=== PATIENT | female | born 1965 | race Caucasian/White ===

== ENCOUNTER 2017-07-15 23:24 | Emergency (ER) | payer OTHER ==
[~2017-07-15] VITALS: Ht 170.2 cm; Wt 86.2 kg
[~2017-07-15 23:24] MED LIST: HYDR1TAB PO; OMEP20CA12 PO
--- OUTSIDE RECORDS SUMMARY | 2017-07-15 23:33 | XMS REPORT | Continuity of Care Document ---
Author Author [facility] Organization [facility] Address Unknown Phone Unavailable Allergies Active Description Code Type Severity Reaction Onset Reported/Identified Relationship to Patient Clinical Status Yes Penicillins [id number] Drug Allergy Unknown N/A 01/27/2016 Medications There is no data. Problems Date Dx Coded Attending Type Code Diagnosis Diagnosed By 05/04/2012 Ot 788.0 RENAL COLIC 05/04/2012 Ot 789.09 ABDOMINAL PAIN, OTHER SPECIFIED SITE 09/25/2012 Ot 723.4 BRACHIAL NEURITIS NOS 09/25/2012 Ot V57.1 PHYSICAL THERAPY NEC 07/01/2013 RENA BLANDON DO Ot V57.1 PHYSICAL THERAPY NEC 07/01/2013 RENA BLANDON DO Ot V58.49 OTHER SPECIFIED AFTERCARE FOLLOWING SURG 09/03/2014 Ot 530.81 09/03/2014 Ot 750.3 09/03/2014 Ot 722.91 09/03/2014 Ot 723.1 09/03/2014 Ot 625.9 09/03/2014 Ot 788.1 09/04/2014 Ot 530.81 09/04/2014 Ot 750.3 09/04/2014 Ot 722.91 09/04/2014 Ot 723.1 09/04/2014 Ot 625.9 09/04/2014 Ot 788.1 11/05/2014 Ot 530.81 11/05/2014 Ot 750.3 11/05/2014 Ot 722.91 11/05/2014 Ot 723.1 11/05/2014 Ot 625.9 11/05/2014 Ot 788.1 11/11/2014 Ot 530.81 11/11/2014 Ot 750.3 11/11/2014 Ot 722.91 11/11/2014 Ot 723.1 11/11/2014 Ot 625.9 11/11/2014 Ot 788.1 11/18/2014 Ot 530.81 11/18/2014 Ot 750.3 11/18/2014 Ot 722.91 11/18/2014 Ot 723.1 11/18/2014 Ot 625.9 11/18/2014 Ot 788.1 11/18/2014 PAULNDER DO, CALLY S Ot 719.41 11/18/2014 PAULNDER DO, CALLY S Ot 723.1 11/18/2014 PAULNDER DO, CALLY S Ot V57.1 11/19/2014 PAULNDER DO, CALLY S Ot 719.41 11/19/2014 PAULNDER DO, CALLY S Ot 723.1 11/19/2014 PAULND DO, CALLY S Ot V57.1 11/28/2014 PAULND DO, CALLY S Ot 719.41 11/28/2014 PAULND DO, CALLY S Ot 723.1 11/28/2014 PAULND DO, CALLY S Ot V57.1 02/16/2015 PAULND DO, CALLY S Ot 719.41 JOINT PAIN-SHLDER 02/16/2015 ADRIANA , CALLY S Ot 723.1 CERVICALGIA 02/16/[address] 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 11/23/2015 Ot 530.81 ESOPHAGEAL REFLUX 11/23/2015 Ot 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 11/23/2015 Ot 722.91 DISC DIS NEC /NOS-CERV 11/23/2015 Ot 723.1 CERVICALGIA 11/23/2015 Ot 625.9 FEM GENITAL SYMPTOMS NOS 11/23/2015 Ot 788.1 DYSURIA 11/23/2015 STEPHANY HARMONP Ot 784.2 SWELLING IN HEAD NECK 11/23/2015 SHENA SHINE DOLINE S Ot 719.49 JOINT PAIN-MULT JTS 11/23/2015 MAXIM SHINE DOQUELINE S Ot 780.79 OTH MALAISE FATIGUE 11/27/2015 INDRA BOLIVAR, DONOVAN Ot Z01.818 ENCOUNTER FOR OTHER PREPROCEDURAL EXAMIN 12/02/2015 Ot 530.81 ESOPHAGEAL REFLUX 12/02/2015 Ot 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 12/02/2015 Ot 722.91 DISC DIS NEC /NOS-CERV 12/02/2015 Ot 723.1 CERVICALGIA 12/02/2015 Ot 625.9 FEM GENITAL SYMPTOMS NOS 12/02/2015 Ot 788.1 DYSURIA 12/02/2015 STEPHANY HARMONP Ot 784.2 SWELLING IN HEAD NECK 12/02/2015 CALLY SHINE DO S Ot 719.49 JOINT PAIN-MULT JTS 12/02/2015 PAULMAXIM VARELA DOQUELINE S Ot 780.79 OTH MALAISE FATIGUE 12/02/2015 DONOVAN BURRELL MD Ot Z01.818 ENCOUNTER FOR OTHER PREPROCEDURAL EXAMIN 12/03/2015 RENA BLANDON DO Ot M23.204 DERANG OF UNSP MEDIAL MENISCUS DUE TO OL 12/03/2015 RENA BLANDON DO Ot 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 [[place]] 12/07/2015 Ot 530.81 ESOPHAGEAL REFLUX 12/07/2015 Ot 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 12/07/2015 Ot 722.91 DISC DIS NEC /NOS-CERV 12/07/2015 Ot 723.1 CERVICALGIA 12/07/2015 Ot 625.9 FEM GENITAL SYMPTOMS NOS 12/07/2015 Ot 788.1 DYSURIA 12/07/2015 STEPHANY HARMONP Ot 784.2 SWELLING IN HEAD NECK 12/07/2015 SHENA SHINE DOLINE S Ot 719.49 JOINT PAIN-MULT JTS 12/07/2015 SHENA SHINE DOLINE S Ot 780.79 OTH MALAISE FATIGUE 12/07/2015 DONOVAN BURRELL MD Ot Z01.818 ENCOUNTER FOR OTHER PREPROCEDURAL EXAMIN 12/07/2015 RENA BLANDON DO Ot M23.204 DERANG OF UNSP MEDIAL MENISCUS DUE TO OL 12/07/2015 RENA BLANDON DO Ot 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 [[place]] 12/07/2015 STEPHANY HARMONP Ot 784.2 SWELLING IN HEAD NECK 01/21/2016 DONOVAN BURRELL MD Ot R10.13 EPIGASTRIC PAIN 01/21/2016 DONOVAN BURRELL MD Ot R10.32 LEFT LOWER QUADRANT PAIN 01/21/2016 DONOVAN BURRELL MD Ot Z01.818 ENCOUNTER FOR OTHER PREPROCEDURAL EXAMIN 01/21/2016 DONOVAN BURRELL MD Ot Z12.11 ENCOUNTER FOR SCREENING FOR MALIGNANT NE 01/21/2016 DONOVAN BURRELL MD Ot R10.13 EPIGASTRIC PAIN 01/21/2016 DONOVAN BURRELL MD Ot R10.32 LEFT LOWER QUADRANT PAIN 01/21/2016 DONOVAN BURRELL MD Ot Z01.818 ENCOUNTER FOR OTHER PREPROCEDURAL EXAMIN 01/21/2016 DONOVAN BURRELL MD Ot Z12.11 ENCOUNTER FOR SCREENING FOR MALIGNANT NE 01/21/2016 DONOVAN BURRELL MD Ot R10.13 EPIGASTRIC PAIN 01/21/2016 DONOVAN BURRELL MD Ot R10.32 LEFT LOWER QUADRANT PAIN 01/21/2016 DONOVAN BURRELL MD Ot Z01.818 ENCOUNTER FOR OTHER PREPROCEDURAL EXAMIN 01/21/2016 DONOVAN BURRELL MD Ot Z12.11 ENCOUNTER FOR SCREENING FOR MALIGNANT NE 01/21/2016 DONOVAN BURRELL MD Ot R10.13 EPIGASTRIC PAIN 01/21/2016 DONOVAN BURRELL MD Ot R10.32 LEFT LOWER QUADRANT PAIN 01/21/2016 DONOVAN BURRELL MD Ot Z01.818 ENCOUNTER FOR OTHER PREPROCEDURAL EXAMIN 01/21/2016 DONOVAN BURRELL MD Ot Z12.11 ENCOUNTER FOR SCREENING FOR MALIGNANT NE 01/22/2016 DONOVAN BURRELL MD Ot R10.13 EPIGASTRIC PAIN 01/22/2016 DONOVAN BURRELL MD Ot R10.32 LEFT LOWER QUADRANT PAIN 01/22/2016 DONOVAN BURRELL MD Ot Z01.818 ENCOUNTER FOR OTHER PREPROCEDURAL EXAMIN 01/22/2016 DONOVAN BURRELL MD Ot Z12.11 ENCOUNTER FOR SCREENING FOR MALIGNANT NE 01/27/2016 DONOVAN BURRELL MD Ot K21.0 GASTRO-ESOPHAGEAL REFLUX DISEASE WITH ES 01/27/2016 DONOVAN BURRELL MD, Ot K29.70 GASTRITIS, UNSPECIFIED, WITHOUT BLEEDING 01/27/2016 DONOVAN BURRELL MD Ot K44.9 DIAPHRAGMATIC HERNIA WITHOUT OBSTRUCTION 01/27/2016 DONOVAN BURRELL MD Ot K57.90 DVRTCLOS OF INTEST, PART UNSP, W/O PERF 01/27/2016 KIDO MD, TAKAAKI Ot K63.5 POLYP OF COLON 01/27/2016 DONOVAN BURRELL MD Ot K64.0 FIRST DEGREE HEMORRHOIDS 02/01/2016 DONOVAN BURRELL MD, Ot K21.0 GASTRO-ESOPHAGEAL REFLUX DISEASE WITH ES 02/01/2016 DONOVAN BURRELL MD Ot K29.70 GASTRITIS, UNSPECIFIED, WITHOUT BLEEDING 02/01/2016 DONOVAN BURRELL MD, Ot K44.9 DIAPHRAGMATIC HERNIA WITHOUT OBSTRUCTION 02/01/2016 DONOVAN BURRELL MD, Ot K57.90 DVRTCLOS OF INTEST, PART UNSP, W/O PERF 02/01/2016 DONOVAN BURRELL MD, Ot K63.5 POLYP OF COLON 02/01/2016 DONOVAN BURRELL MD, Ot K64.0 FIRST DEGREE HEMORRHOIDS 07/18/2016 Ot 786.50 07/18/2016 Ot 789.09 ABDOMINAL PAIN, OTHER SPECIFIED SITE 07/18/2016 Ot 530.81 ESOPHAGEAL REFLUX 07/18/2016 Ot 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09 ABDOMINAL PAIN, OTHER SPECIFIED SITE 07/18/2016 Ot 530.81 ESOPHAGEAL REFLUX 07/18/2016 Ot 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 Results There is no data. Encounters ACCT No. Visit Date/Time Discharge Status Pt. Type Provider Facility Loc./Unit Complaint [id number] 01/27/2016 08:28:00 01/27/2016 11:30:00 DIS Outpatient DONOVAN BURRELL MD [facility] EPIGASTIC PAIN, LEFT LOWER QUAD PAIN [id number] 01/21/2016 10:30:00 01/21/2016 16:00:00 DIS Outpatient DONOVAN BURRELL MD [facility] PREOP EPIGASTIC PAIN,LEFT LOWER QUAD PAIN [id number] 12/04/2015 13:00:00 12/04/2015 23:59:59 CLS Preadmit DONOVAN BURRELL MD [facility] LEFT LOWER QUAD PAIN, EPIGASTRIC PAIN [id number] 12/02/2015 10:46:00 12/02/2015 23:59:59 CLS Outpatient RENA BLANDON DO [facility] RAD TMM LEFT KNEE [id number] 11/26/2015 06:13:00 11/26/2015 23:59:59 CLS Outpatient DONOVAN BURRELL MD [facility] PREOP LEFT LOWER QUAD PAIN, EPIGASTRIC PAIN [id number] 11/02/2015 08:03:00 11/02/2015 12:17:00 DIS Outpatient RENA DONATO MD [facility] REHAB NTOS [id number] 03/30/2015 08:00:00 04/13/2015 11:55:00 DIS Outpatient RENA DONATO MD [facility] REHAB THORACIC OUTLET SYNDROME/BRACHIAL PLEXUS LESIONS [id number] 04/02/2015 10:30:00 04/02/2015 23:59:59 CLS Outpatient CALLY SHINE DO [facility] RAD OSTEOPOROSIS [id number] 03/02/2015 08:59:00 03/02/2015 23:59:59 CLS Outpatient STEPHANY HARMON [employer] [facility] RAD NECK MASS [id number] 02/02/2015 08:00:00 02/16/2015 10:22:00 DIS Outpatient CALLY SHINE DO [facility] REHAB NECK AND SHOULDER PAIN [id number] 05/17/2013 07:59:00 07/01/2013 08:37:00 DIS Outpatient RENA BLANDON DO [facility] REHAB S/P L SHOULDER LABRAL REPAIR AND SAD [id number] 01/26/2013 10:49:00 01/26/2013 23:59:59 CLS Outpatient TRA GOMEZ [facility] QUICK STEROID SHOT [id number] 01/23/2013 08:40:00 01/23/2013 23:59:59 CLS Outpatient GABI MEMBRENO [facility] QUICK RASH [id number] 07/18/2016 08:15:00 Document Registration [id number] 07/18/2016 08:15:00 Document Registration [id number] 10/30/2012 10:09:00 Document Registration [id number] 10/11/2012 07:59:00 Document Registration [id number] 09/25/2012 11:11:00 Document Registration [id number] 06/29/2012 12:22:00 Document Registration [id number] 05/04/2012 15:20:00 Document Registration [id number] 08/15/2011 06:38:00 Document Registration [id number] 07/27/2010 14:09:00 Document Registration [id number] 12/02/2006 11:42:00 Document Registration
[2017-07-16 00:33] LABS: BILIRUBIN,URINE NEGATIVE (NEGATIVE); KETONES,URINE NEGATIVE (NEGATIVE); LEUKOCYTE ESTERASE ,URINE 3+ (NEGATIVE); NITRITE,URINE NEGATIVE (NEGATIVE); PH,URINE 6.5 (5-9); PROTEIN,URINE NEGATIVE (NEGATIVE); UROBILINOGEN,URINE NORMAL (NORMAL)
[2017-07-16 00:51] LABS: WBC,URINE 25-50 /HPF
[2017-07-16] MEDS ORDERED: LACTATED RINGERS 1,000 ML IV ONE ×2 (01:08→01:58)
[2017-07-16 01:14] LABS: BASOPHILS # (AUTO) 0.1 10^3/uL (0.0-0.1); BASOPHILS % (AUTO) 1 % (0-10); EOSINOPHILS # (AUTO) 0.2 10^3/uL (0.0-0.3); EOSINOPHILS % (AUTO) 2 % (0-10); LYMPHOCYTES # (AUTO) 2.4 X 10^3 (1.0-4.0); LYMPHOCYTES % (AUTO) 28 % (12-44); MEAN CORPUSCULAR HEMOGLOBIN 28 PG (25-34); MEAN CORPUSCULAR HGB CONC 34 G/DL (32-36); MEAN CORPUSCULAR VOLUME 84 FL (80-99); MEAN PLATELET VOLUME 9.3 FL (7.4-10.4); MONOCYTES % (AUTO) 12 % (0-12); NEUTROPHILS # (AUTO) 4.8 X 10^3 (1.8-7.8); NEUTROPHILS % (AUTO) 57 % (42-75); PLATELET COUNT 293 10^3/uL (130-400); RED BLOOD COUNT 4.29 10^6/uL (4.35-5.85); RED CELL DISTRIBUTION WIDTH 12.6 % (10.0-14.5); WHITE BLOOD COUNT 8.4 10^3/uL (4.3-11.0)
[2017-07-16 01:37] LABS: ALANINE AMINOTRANSFERASE 19 U/L (0-55); AMYLASE 28 U/L (25-125); ANION GAP 12 MMOL/L (5-14); ASPARTATE AMINO TRANSFERASE 16 U/L (5-34); BILIRUBIN,TOTAL 0.1 MG/DL (0.1-1.0); BLOOD UREA NITROGEN 12 MG/DL (7-18); BUN/CREATININE RATIO 16; CALCIUM 9.2 MG/DL (8.5-10.1); CARBON DIOXIDE 21 MMOL/L (21-32); CHLORIDE 108 MMOL/L (98-107); CREATININE SERUM 0.74 MG/DL (0.60-1.30); GFR ESTIMATED > 60; GLUCOSE 143 MG/DL (70-105); LIPASE 39 U/L (8-78); POTASSIUM 3.7 MMOL/L (3.6-5.0); SODIUM 141 MMOL/L (135-145); TOTAL PROTEIN 7.1 GM/DL (6.4-8.2)
[2017-07-16] MEDS ORDERED: ACETAMINOPHEN 500 MG TAB (TYLENOL) PO ONE (02:00)
[2017-07-16] MEDS ORDERED: KETOROLAC 30 MG/ML VIAL IVP ONE (02:00)
[2017-07-16] MEDS ORDERED: ONDA4TAB8 PO (03:28)
[2017-07-16] MEDS ORDERED: KETO10TA PO (03:28)
[2017-07-16] MEDS ORDERED: NITR-65 PO (03:28)
--- NOTE | 2017-07-16 03:28 | ED Abdominal Pain ---
General Chief Complaint: General Problems/Pain Stated Complaint: L SIDE PAIN Nursing Triage Note: PT TO ED 9 W/ C/O CHRONIC LUQ PAIN ONSET "MONTHS". REPORTS HAS SEEN DR BURRELL FOR COMPLAINT. PT STATES PAIN BEGAN TO RADIATE THROUGH TO BACK "GRADUALLY" OVER PAST FEW WEEKS. REPORTS DAILY NAUSEA. DENIES INJURY. STATES SHE THINKS IT MAY BE R/T HER THORACIC OUTLET SYNDROME Sepsis Screen: No Definite Risk Source of Information: Patient History of Present Illness Time Seen By Provider: 00:30 Initial Comments C/O CHRONIC LEFT SIDED ABDOMINAL PAIN AND FLANK PAIN FOR A YEAR PAIN RADIATES TO LEFT BACK SYMPTOMS HAVE BEEN WORSE THE LAST COUPLE OF WEEKS HAS A BURNING SENSATION IN LEFT FLANK HAS A SHARP STABBING PAIN ON DEEP BREATHS IN LUQ AND LEFT FLANK PAIN NOW IS IN IN LUQ AND RADIATES TO MID EPIGASTRIC AREA THEN POINTS TO EPIGASTRIC AREA AND STATES IT GOES STRAIGHT DOWN TO UMBILICUS AND AROUND TO HER BACK HAS CHRONIC DIFFUSE LOWER BACK PAIN HAS CHRONIC NAUSEA AND BLOATING, NO VOMITING NO DIARRHEA NO URINARY SYMPTOMS TONIGHT HER LIPS WERE BURNING ALSO Allergies and Home Medications Allergies Coded Allergies: Penicillins (Verified Allergy, Unknown, 01/27/16) Home Medications Ketorolac Tromethamine 10 Mg Tablet, 10 MG PO Q6H, #15 Prescribed by: BRENDA WHEATLEY on 07/16/17 0328 Nitrofurantoin Monohyd/M-Cryst 100 Mg Capsule, 1 TAB PO BID, #30 Prescribed by: BRENDA WHEATLEY on 07/16/17327 Omeprazole 20 Mg Capsule.dr, 1 CAP PO DAILY, #30 (Reported) Ondansetron 4 Mg Tab.rapdis, 4 MG PO Q4H, #10 Prescribed by: BRENDA WHEATLEY on 07/16/17 0328 Past Eucdceq-Rtdeow-Vboywh Hx Patient Social History Alcohol Use: Denies Use Recreational Drug Use: No Smoking Status: Never a Smoker Recent Foreign Travel: No Contact w/Someone Who Travel: No Recent Infectious Disease Expo: No Physical Abuse: No Sexual Abuse: No Mistreated: No Fear: No Immunizations Up To Date Date of Influenza Vaccine: Apr 27, 2012 Surgeries History of Surgeries: Yes (RIB REMOVED AND MUSCLES-TOS, FATTY TUMOR, SHOULDER SURGERY) Surgeries: Adenoidectomy, Gallbladder, Tonsillectomy Respiratory History of Respiratory Disorde: No Cardiovascular History of Cardiac Disorders: No (OCC IRREGULAR HEART BEAT) Neurological History of Neurological Disord: No Gastrointestinal History of Gastrointestinal Di: No Musculoskeletal History of Musculoskeletal Dis: Yes (TOS-ASK PT ABOUT) Endocrine History of Endocrine Disorders: No Psychosocial Suicide Risk Score: 0 Physical Exam Vital Signs VS - Last 72 Hours, by Label 07/15/17 07/16/17 23:53 03:52 Temp 98.6 Pulse 113 88 Resp 20 18 B/P (MAP) 137/105 (116) Pulse Ox 97 99 O2 Delivery Room Air Capillary Refill : Less Than 3 Seconds Progress/Results/Core Measures Results/Orders Lab Results Laboratory Tests Test 07/16/17 00:23 07/16/17 01:07 Range/Units Urine Color YELLOW Urine Clarity SLIGHTLY CLOUDY Urine pH 6.5 5-9 Urine Specific [place] 1.020 1.016-1.022 Urine Protein NEGATIVE NEGATIVE Urine Glucose (UA) NEGATIVE NEGATIVE Urine Ketones NEGATIVE NEGATIVE Urine Nitrite NEGATIVE NEGATIVE Urine Bilirubin NEGATIVE NEGATIVE Urine Urobilinogen NORMAL NORMAL MG/DL Urine Leukocyte Esterase 3+ H NEGATIVE Urine RBC (Auto) 1+ H NEGATIVE Urine RBC 2-5 H /HPF Urine WBC 25-50 H /HPF Urine Squamous Epithelial Cells 10-25 H /HPF Urine Crystals NONE /LPF Urine Bacteria LARGE H /HPF Urine Casts NONE /LPF Urine Mucus NEGATIVE /LPF Urine Culture Indicated YES White Blood Count 8.4 4.3-11.0 10^3/uL Red Blood Count 4.29 L 4.35-5.85 10^6/uL Hemoglobin 12.2 11.5-16.0 G/DL Hematocrit 36 35-52 % Mean Corpuscular Volume 84 80-99 FL Mean Corpuscular Hemoglobin 28 25-34 PG Mean Corpuscular Hemoglobin Concent 34 32-36 G/DL Red Cell Distribution Width 12.6 10.0-14.5 % Platelet Count 293 130-400 10^3/uL Mean Platelet Volume 9.3 7.4-10.4 FL Neutrophils (%) (Auto) 57 42-75 % Lymphocytes (%) (Auto) 28 12-44 % Monocytes (%) (Auto) 12 0-12 % Eosinophils (%) (Auto) 2 0-10 % Basophils (%) (Auto) 1 0-10 % Neutrophils # (Auto) 4.8 1.8-7.8 X 10^3 Lymphocytes # (Auto) 2.4 1.0-4.0 X 10^3 Monocytes # (Auto) 1.0 0.0-1.0 X 10^3 Eosinophils # (Auto) 0.2 0.0-0.3 10^3/uL Basophils # (Auto) 0.1 0.0-0.1 10^3/uL Sodium Level 141 135-145 MMOL/L Potassium Level 3.7 3.6-5.0 MMOL/L Chloride Level 108 H 98-107 MMOL/L Carbon Dioxide Level 21 21-32 MMOL/L Anion Gap 12 5-14 MMOL/L Blood Urea Nitrogen 12 7-18 MG/DL Creatinine 0.74 0.60-1.30 MG/DL Estimat Glomerular Filtration Rate > 60 BUN/Creatinine Ratio 16 Glucose Level 143 H 70-105 MG/DL Calcium Level 9.2 8.5-10.1 MG/DL Total Bilirubin 0.1 0.1-1.0 MG/DL Aspartate Amino Transf (AST/SGOT) 16 5-34 U/L Alanine Aminotransferase (ALT/SGPT) 19 0-55 U/L Alkaline Phosphatase 68 40-136 U/L Total Protein 7.1 6.4-8.2 GM/DL Albumin 4.0 3.2-4.5 GM/DL Amylase Level 28 25-125 U/L Lipase 39 8-78 U/L My Orders Orders - BRENDA WHEATLEY DO Saline Lock/Iv-Start (07/16/17 00:20) Amylase (07/16/17 00:20) Cbc With Automated Diff (07/16/17 00:20) Comprehensive Metabolic Panel (07/16/17 00:20) Lipase (07/16/17 00:20) Ua Culture If Indicated (07/16/17 00:20) Saline Lock/Iv-Start (07/16/17 00:24) Urine Culture (07/16/17 00:23) Saline Lock/Iv-Start (07/16/17 01:08) Lactated Ringers (Lr 1000 Ml Iv Solution (07/16/17 01:08) Ct Abdomen/Pelvis W (07/16/17 01:56) Acetaminophen Tablet (Tylenol Tablet) (07/16/17 02:00) Ketorolac Injection (Toradol Injection) (07/16/17 02:00) Saline Lock/Iv-Start (07/16/17 01:58) Lactated Ringers (Lr 1000 Ml Iv Solution (07/16/17 01:58) Ceftriaxone Injection (Rocephin Injectio (07/16/17 03:30) Medications Given in ED Vital Signs/I&O Vital Sign - Last 12Hours 07/15/17 07/16/17 23:53 03:52 Temp 98.6 Pulse 113 88 Resp 20 18 B/P (MAP) 137/105 (116) Pulse Ox 97 99 O2 Delivery Room Air Blood Pressure Mean: 116 Departure Impression Impression: Primary Impression: Urinary tract infection Additional Impression: Left sided abdominal pain Disposition: HOME, SELF-CARE Condition: Improved Departure-Patient Inst. Referrals: CALLY SHINE DO (PCP/Family) Primary Care Physician Patient Instructions: Acute Abdomen (Belly Pain), Adult (DC), Urinary Tract Infection, Adult (DC) Add. Discharge Instructions: LOTS OF CLEAR LIQUIDS--WATER, BROTH, JELLO, GATORADE FOLLOW UP WITH YOUR DR IN 3-4 DAYS FOR FURTHER CARE All discharge instructions reviewed with patient and/or family. Voiced understanding. Scripts Ondansetron (Zofran Odt) 4 Mg Tab.rapdis 4 MG PO Q4H for Nausea/Vomiting, #10 TAB Prov: BRENDA WHEATLEY DO 07/16/17 Ketorolac Tromethamine (Ketorolac Tromethamine) 10 Mg Tablet 10 MG PO Q6H for Pain, #15 TAB Prov: BRENDA WHEATLEY DO 07/16/17 Nitrofurantoin Monohyd/M-Cryst (Macrobid 100 mg Capsule) 100 Mg Capsule 1 TAB PO BID, #30 CAP Prov: BRENDA WHEATLEY DO 07/16/17 BRENDA WHEATLEY DO Jul 16, 2017 03:28
[2017-07-16] MEDS ORDERED: cefTRIAXone INJECTION 1,000 MG in NS (IVPB) 50 ML IV ONE (03:30)
[2017-07-16 03:52] VITALS: BP 134/91
--- NOTE | 2017-07-16 06:46 | Diagnostic Imaging Report ---
PROCEDURE: CT abdomen and pelvis with contrast. TECHNIQUE: Multiple contiguous axial images were obtained through the abdomen and pelvis after administration of intravenous contrast. INDICATION: Chronic left upper quadrant pain which has increased in severity. There are fatty changes of the liver. The gallbladder is absent. The bile ducts are nondilated. The spleen, pancreas and adrenals show no acute abnormality. The kidneys, ureters and bladder are normal. There is diverticulosis of the colon with no evidence of diverticulitis at this time. The small bowel is within normal limits. There is no free intraperitoneal air or fluid. There is no bony abnormality. IMPRESSION: Diverticulosis of the colon. Fatty liver. No acute abnormality is seen. There is slightly more diverticulosis of the colon, otherwise there is no change from 10/30/2012. Dictated by: Dictated on workstation # [id number]
== END 2017-07-16 03:52 | disposition home or self-care (01) ==
LOC: EDUNIT# 23:24 → ER 23:28
DX: N39.0 Urinary tract infection, site not specified (principal); R10.12 Left upper quadrant pain; Z90.89 Acquired absence of other organs; Z98.890 Other specified postprocedural states
CPT/HCPCS: 74177

== ENCOUNTER → 2017-11-14 | Outpatient (CLI) | payer OTHER ==
[~2017-11-14] MED LIST changes: +KETO10TA PO; +NITR-65 PO; +ONDA4TAB8 PO; +PHEN-640 PO
== END ==
LOC: CARD 12:23
PROVIDERS: ATTEND Internal Medicine Cardiovascular Disease
DX: G54.0 Brachial plexus disorders (principal); R00.2 Palpitations; R06.02 Shortness of breath
CPT/HCPCS: 93306; 93351

== ENCOUNTER 2018-01-02 06:02 | Emergency (ER) | payer OTHER ==
[~2018-01-02] VITALS: Ht 170.2 cm; Wt 86.2 kg
[~2018-01-02 06:02] MED LIST changes: -PHEN-640 PO
[2018-01-02 06:25] LABS: BILIRUBIN,URINE NEGATIVE (NEGATIVE); CLARITY,URINE VERY CLOUDY; COLOR,URINE YELLOW; GLUCOSE, URINE (UA) NEGATIVE (NEGATIVE); KETONES,URINE NEGATIVE (NEGATIVE); LEUKOCYTE ESTERASE ,URINE 3+ (NEGATIVE); NITRITE,URINE NEGATIVE (NEGATIVE); PH,URINE 5 (5-9); PROTEIN,URINE 2+ (NEGATIVE); UROBILINOGEN,URINE NORMAL (NORMAL)
[2018-01-02 06:35] LABS: BACTERIA,URINE MODERATE /HPF; SQUAMOUS EPITHELIAL CELL,UR 0-2 /HPF; WBC,URINE TNTC /HPF
[2018-01-02] MEDS ORDERED: NS IV 1000 ML 1,000 ML IV ONE (07:10)
[2018-01-02] MEDS ORDERED: PHENAZOPYRIDINE 100 MG (PYRIDIUM) TABLET PO ONE (07:15)
[2018-01-02] MEDS ORDERED: KETOROLAC 30 MG/ML VIAL IVP ONE (07:15)
[2018-01-02] MEDS ORDERED: LEVOFLOXACIN 500 MG/100 ML (LEVAQUIN) BAG IV ONE (07:15)
[2018-01-02 08:20] LABS: BASOPHILS % (AUTO) 1 % (0-10); EOSINOPHILS # (AUTO) 0.1 10^3/uL (0.0-0.3); EOSINOPHILS % (AUTO) 1 % (0-10); HEMATOCRIT 38 % (35-52); HEMOGLOBIN 12.8 G/DL (11.5-16.0); LYMPHOCYTES # (AUTO) 1.4 X 10^3 (1.0-4.0); LYMPHOCYTES % (AUTO) 17 % (12-44); MEAN CORPUSCULAR HEMOGLOBIN 29 PG (25-34); MEAN CORPUSCULAR HGB CONC 34 G/DL (32-36); MEAN CORPUSCULAR VOLUME 84 FL (80-99); MEAN PLATELET VOLUME 9.3 FL (7.4-10.4); MONOCYTES # (AUTO) 0.7 X 10^3 (0.0-1.0); MONOCYTES % (AUTO) 8 % (0-12); NEUTROPHILS # (AUTO) 6.1 X 10^3 (1.8-7.8); NEUTROPHILS % (AUTO) 73 % (42-75); PLATELET COUNT 296 10^3/uL (130-400); RED BLOOD COUNT 4.48 10^6/uL (4.35-5.85); RED CELL DISTRIBUTION WIDTH 12.9 % (10.0-14.5); WHITE BLOOD COUNT 8.4 10^3/uL (4.3-11.0)
--- NOTE | 2018-01-02 08:27 | ED GU-Female ---
General Chief Complaint: -Female Stated Complaint: POSS UTI Nursing Triage Note: PT PRESENTS TO ER WITH COMPLAINT OF POSSIBLE UTI. STATES SHE IS HAVING LOWER ABD PAIN AND DIFFICULTY URINATING. 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 Nursing Sepsis Screen: No Definite Risk Source: patient, old records Exam Limitations: no limitations History of Present Illness Date Seen by Provider: Jan 02, 2018 Time Seen by Provider: 06:05 Initial Comments This 52-year-old woman presents to the emergency room with complaints of 2 weeks or more of dysuria and pelvic pain. She sometimes has difficulty urinating and feels like she does not empty her bladder. She is currently being assessed for possible prolapsed uterus by her state editor. She was seen by her state editor last week and a urine specimen was obtained. Patient states there was suspicion for urinary tract infection but she is awaiting culture results before treatment. She has pain that radiates from her pelvis up to her left side and flank. She also has aching in her lower back. Her last menstrual period was November 30. She experiences significant bladder cramping after urinating. She has had subjective fevers with chills. She feels dehydrated. She has a secondary complaint of left earache. She denies any vomiting, diarrhea, or constipation. Patient states she has a history of kidney stones but this does not feel like a kidney stone. She had a CT performed about 6 months ago that demonstrated no stones within the left kidney. Allergies and Home Medications Allergies Coded Allergies: Penicillins (Verified Allergy, Unknown, 01/27/16) Home Medications Nitrofurantoin Monohyd/M-Cryst 100 Mg Capsule, 1 TAB PO BID Prescribed by: ALEJANDRINA BAXTER on 01/02/18 1031 Omeprazole 20 Mg Capsule., 1 CAP PO DAILY, (Reported) Phenazopyridine HCl 200 Mg Tablet, 1 TAB PO TID Prescribed by: ALEJANDRINA BAXTER on 01/02/18 1031 Patient Home Medication List Home Medication List Reviewed: Yes Review of Systems Constitutional: no symptoms reported EENTM: see HPI Respiratory: no symptoms reported Cardiovascular: no symptoms reported Gastrointestinal: see HPI Genitourinary: see HPI : No LMP: November 30, 2017 Musculoskeletal: see HPI Skin: no symptoms reported Psychiatric/Neurological: No Symptoms Reported Endocrine: No Symptoms Reported Hematologic/Lymphatic: No Symptoms Reported Past Zbguixx-Wwavzi-Qptwvc Hx Past Med/Social Hx: Reviewed and Corrections made Patient Social History Alcohol Use: Denies Use Recreational Drug Use: No Smoking Status: Never a Smoker Recent Foreign Travel: No Contact w/Someone Who Travel: No Recent Infectious Disease Expo: No Immunizations Up To Date Date of Influenza Vaccine: Apr 27, 2012 Past Medical History Surgeries: Yes (TOS) Adenoidectomy, Gallbladder, Orthopedic, Tonsillectomy, Tubal Ligation Respiratory: No Cardiac: No (OCC IRREGULAR HEART BEAT) Neurological: No : No 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 Genitourinary: Yes (frequent urinary tract infection) Kidney Stones Gastrointestinal: Yes (S/P PORSHA) Gastroesophageal Reflux, Gall Bladder Disease Musculoskeletal: Yes (THORACIC OUTLET SYNDROME--LEFT FIRST RIB REMOVED) Endocrine: No HEENT: No Cancer: No Psychosocial: No Integumentary: No Blood Disorders: No Physical Exam Vital Signs Vital Signs - First Documented 01/02/18 06:12 Temp 98.2 Pulse 83 Resp 18 B/P (MAP) 139/92 (108) Pulse Ox 96 O2 Delivery Room Air Capillary Refill : Less Than 3 Seconds General Appearance: WD/WN, mild distress (appears uncomfortable) HEENT: PERRL/EOMI, normal ENT inspection, pharynx normal Neck: normal inspection Cardiovascular: regular rate, rhythm, no edema, no murmur Respiratory: lungs clear, normal breath sounds, no respiratory distress, no accessory muscle use Gastrointestinal: normal bowel sounds, soft, tenderness (suprapubic and left abdomen) Back: normal inspection, CVA tenderness (L) Extremities: normal inspection, no pedal edema 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, no motor/sensory deficits, alert, normal mood/affect, oriented x 3 Skin: normal color, warm/dry Progress/Results/Core Measures Suspected Sepsis Recent Fever Within 48 Hours: No Infection Criteria Present: None New/Unexplained Altered Menta: No Sepsis Screen: No Definite Risk SIRS Temperature:98.2 Pulse: 83 Respiratory Rate: 18 Laboratory Tests 01/02/18 08:14: White Blood Count 8.4 Blood Pressure 139 /92 Mean: 108 Laboratory Tests 01/02/18 08:14: Creatinine 0.68, Platelet Count 296, Total Bilirubin 0.5 Results/Orders Lab Results Laboratory Tests Test 01/02/18 06:20 65/18 08:14 Range/Units Urine Color YELLOW Urine Clarity VERY CLOUDY H Urine pH 5 5-9 Urine Specific [place] 1.025 H 1.016-1.022 Urine Protein 2+ H NEGATIVE Urine Glucose (UA) NEGATIVE NEGATIVE Urine Ketones NEGATIVE NEGATIVE Urine Nitrite NEGATIVE NEGATIVE Urine Bilirubin NEGATIVE NEGATIVE Urine Urobilinogen NORMAL NORMAL MG/DL Urine Leukocyte Esterase 3+ H NEGATIVE Urine RBC (Auto) 2+ H NEGATIVE Urine RBC 5-10 H /HPF Urine WBC TNTC H /HPF Urine Squamous Epithelial Cells 0-2 /HPF Urine Crystals NONE /LPF Urine Bacteria MODERATE H /HPF Urine Casts NONE /LPF Urine Mucus NEGATIVE /LPF Urine Culture Indicated YES White Blood Count 8.4 4.3-11.0 10^3/uL Red Blood Count 4.48 4.35-5.85 10^6/uL Hemoglobin 12.8 11.5-16.0 G/DL Hematocrit 38 35-52 % Mean Corpuscular Volume 84 80-99 FL Mean Corpuscular Hemoglobin 29 25-34 PG Mean Corpuscular Hemoglobin Concent 34 32-36 G/DL Red Cell Distribution Width 12.9 10.0-14.5 % Platelet Count 296 130-400 10^3/uL Mean Platelet Volume 9.3 7.4-10.4 FL Neutrophils (%) (Auto) 73 42-75 % Lymphocytes (%) (Auto) 17 12-44 % Monocytes (%) (Auto) 8 0-12 % Eosinophils (%) (Auto) 1 0-10 % Basophils (%) (Auto) 1 0-10 % Neutrophils # (Auto) 6.1 1.8-7.8 X 10^3 Lymphocytes # (Auto) 1.4 1.0-4.0 X 10^3 Monocytes # (Auto) 0.7 0.0-1.0 X 10^3 Eosinophils # (Auto) 0.1 0.0-0.3 10^3/uL Basophils # (Auto) 0.0 0.0-0.1 10^3/uL Sodium Level 140 135-145 MMOL/L Potassium Level 3.9 3.6-5.0 MMOL/L Chloride Level 108 H 98-107 MMOL/L Carbon Dioxide Level 22 21-32 MMOL/L Anion Gap 10 5-14 MMOL/L Blood Urea Nitrogen 10 7-18 MG/DL Creatinine 0.68 0.60-1.30 MG/DL Estimat Glomerular Filtration Rate > 60 BUN/Creatinine Ratio 15 Glucose Level 110 H 70-105 MG/DL Calcium Level 8.8 8.5-10.1 MG/DL Total Bilirubin 0.5 0.1-1.0 MG/DL Aspartate Amino Transf (AST/SGOT) 17 5-34 U/L Alanine Aminotransferase (ALT/SGPT) 17 0-55 U/L Alkaline Phosphatase 59 40-136 U/L Total Protein 7.3 6.4-8.2 GM/DL Albumin 4.1 3.2-4.5 GM/DL Serum Test, Qualitative NEGATIVE NEGATIVE Micro Results Microbiology 01/02/18 Urine Culture - Preliminary, [facility] My Orders Orders - ALEJANDRINA MONTANEZ MD Cbc With Automated Diff (01/02/18 07:10) Comprehensive Metabolic Panel (01/02/18 07:10) Saline Lock/Iv-Start (01/02/18 07:10) Ns Iv 1000 Ml (Sodium Chloride 0.9%) (01/02/18 07:10) Ketorolac Injection (Toradol Injection) (01/02/18 07:15) Phenazopyridine Tablet (Pyridium Tablet) (01/02/18 07:15) Levofloxacin 500 Mg/100 Ml Iv (Levaquin (01/02/18 07:15) Bladder Scan (01/02/18 07:12) Hcg,Qualitative Serum (01/02/18 09:21) Medications Given in ED Vital Signs/I&O Capillary Refill : Less Than 3 Seconds Blood Pressure Mean: 108 Progress Note : Progress Note Patient was treated with Toradol and Pyridium for pain. A liter of IV normal saline was infused. Patient was found to have a significant urinary tract infection without evidence of sepsis. Levaquin was selected as initial antibiotic because of the penicillin allergy. Levaquin 500 mg IV was infused. Because of the pain patient is having in the pelvis and radiating up toward the left flank, patient was given the option of CT scan for stone search. Review of chart notes she had a CT scan performed about 6 months ago that showed no stones in the left kidney. Patient wishes to treat with antibiotics alone at this time. If pain is not improving with antibiotics she will reconsider CT scan. I did contact patient's SCUDDING INSPECTOR office to obtain the urine culture result from last week. Apparently no culture was actually sent according to the nurse I spoke with. Post void bladder scan was obtained and showed only about 20 mL of urine. Patient did not appear to be retaining urine. Departure Impression Primary Impression: Urinary tract infection Qualified Codes: N39.0 - Urinary tract infection, site not specified; R31.9 - Hematuria, unspecified Additional Impression: Left sided abdominal pain Disposition: HOME, SELF-CARE Condition: Improved Departure-Patient Inst. Decision time for Depature: 09:20 Referrals: CALLY SHINE DO (PCP/Family) Primary Care Physician Patient Instructions: Urinary Tract Infection, Adult (DC) Add. Discharge Instructions: Please follow-up with Dr. Shine as soon as possible. Contact her office for a follow-up appointment. Your urine culture results should be available by afternoon or Monday morning. Please contact Dr. Shine's office for review of urine culture results. If you're unable to obtain results from Dr. Shnie's office, you may contact the emergency room. Drink plenty of clear liquids. You may take ibuprofen up to 600 mg every 6 hours and/or Tylenol ( acetaminophen) up to 1000 mg every 6 hours as needed for pain. Complete the entire course of your antibiotics unless otherwise instructed. Please be advised that peridium and Macrobid may change the color of your urine to an orangeish or reddish color. Return to the emergency room if symptoms are worsening, especially if you're developing fevers over 100 or intensifying pain despite treatment. All discharge instructions reviewed with patient and/or family. Voiced understanding. Scripts Nitrofurantoin Monohyd/M-Cryst (Macrobid 100 mg Capsule) 100 Mg Capsule 1 TAB PO BID, #14 CAP Prov: ALEJANDRINA MONTANEZ MD 01/02/18 Phenazopyridine HCl (Pyridium) 200 Mg Tablet 1 TAB PO TID, #10 TAB Prov: ALEJANDRINA MONTANEZ MD 01/02/18 Copy Copies To 1: CALLY SHINE JOSHUA T MD Jan 02, 2018 08:27
[2018-01-02 08:50] LABS: ALANINE AMINOTRANSFERASE 17 U/L (0-55); ALBUMIN 4.1 GM/DL (3.2-4.5); ALKALINE PHOSPHATASE 59 U/L (40-136); BILIRUBIN,TOTAL 0.5 MG/DL (0.1-1.0); BUN/CREATININE RATIO 15; CALCIUM 8.8 MG/DL (8.5-10.1); CARBON DIOXIDE 22 MMOL/L (21-32); CHLORIDE 108 MMOL/L (98-107); CREATININE SERUM 0.68 MG/DL (0.60-1.30); GFR ESTIMATED > 60; GLUCOSE 110 MG/DL (70-105); POTASSIUM 3.9 MMOL/L (3.6-5.0); SODIUM 140 MMOL/L (135-145); TOTAL PROTEIN 7.3 GM/DL (6.4-8.2)
[2018-01-02] MEDS ORDERED: NITR-65 PO ×2 (09:31→10:31)
[2018-01-02] MEDS ORDERED: PHEN-640 PO ×2 (09:31→10:31)
[2018-01-02 09:47] VITALS: BP 139/92
== END 2018-01-02 09:44 | disposition home or self-care (01) ==
LOC: EDUNIT# 06:02 → ER 06:04
DX: N39.0 Urinary tract infection, site not specified (principal); K21.9 Gastro-esophageal reflux disease without esophagitis; Z88.0 Allergy status to penicillin; Z87.442 Personal history of urinary calculi; Z98.51 Tubal ligation status; Z90.89 Acquired absence of other organs; Z87.19 Personal history of other diseases of the digestive system; Z90.49 Acquired absence of other specified parts of digestive tract
CPT/HCPCS: 36415; 80053; 81000; 84703; 85025; 87077; 87088; 87186; 96361; 96365; 96375

== ENCOUNTER → 2018-09-28 | Outpatient (CLI) | payer BC, OTHER ==
[~2018-09-28] MED LIST changes: +PHEN-640 PO
--- NOTE | 2018-09-28 09:57 | Diagnostic Imaging Report ---
CLINICAL INDICATION: Patient with recurrent sinusitis, there is sinus pressure on left maxillary sinus. EXAM: Axial maxillofacial CT scan performed without IV contrast with coronal reformations. COMPARISON: None. FINDINGS: PARANASAL SINUSES: FRONTAL: Unremarkable. ETHMOID: Unremarkable. MAXILLARY: Unremarkable. SPHENOID: Unremarkable. OTHER PARANASAL SINUS FINDINGS: None. NASAL SEPTUM: There is 4 mm rightward nasal septal deviation. VISUALIZED TEMPORAL BONE STRUCTURES: Unremarkable. BONY STRUCTURES: There is ossification and bony elongation involving the bilateral stylohyoid ligaments. There is no other significant bony abnormality seen. EXTRACRANIAL SOFT TISSUE/ ORBITS: Unremarkable. IMPRESSION: 1: There is no significant paranasal sinus disease. 2: There is rightward nasal septal deviation. 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 Dictated by: Dictated on workstation # [id number]
== END ==
LOC: RAD 09:02
PROVIDERS: ATTEND Otolaryngology Otolaryngology/Facial Plastic Surgery
DX: J32.9 Chronic sinusitis, unspecified (principal); J34.2 Deviated nasal septum; M67.88 Other specified disorders of synovium and tendon, other site; Q79.9 Congenital malformation of musculoskeletal system, unspecified
CPT/HCPCS: 70486

== ENCOUNTER 2018-11-09 05:50 | Outpatient (CLI) | payer BC ==
[~2018-11-09] VITALS: Ht 170.2 cm; Wt 86.2 kg
[2018-11-09] MEDS ORDERED: [UNRECOGNIZED DRUG - REMARK] PO (14:12)
== END 2018-11-09 14:13 | disposition home or self-care (01) ==
LOC: PREOP 05:50
PROVIDERS: ATTEND Surgery
DX: Z01.818 Encounter for other preprocedural examination (principal)

== ENCOUNTER 2018-11-16 11:36 | Day surgery (SDC) | payer BC ==
[~2018-11-16] VITALS: Ht 170.2 cm; Wt 86.2 kg
[~2018-11-16 11:36] MED LIST changes: +[UNRECOGNIZED DRUG - REMARK] PO
[2018-11-16 11:40] VITALS: BP 146/96
[2018-11-16] MEDS ORDERED: NS IV 500 ML 500 ML IV PRN (11:44)
[2018-11-16] MEDS ORDERED: LIDOCAINE JELLY 2% 6 ML SYRINGE MM PRN (11:45)
[2018-11-16] MEDS ORDERED: fentaNYL INJECTION 100 MCG/2 ML AMP IVP ONE (11:45)
[2018-11-16] MEDS ORDERED: MIDAZOLAM 2 MG/2 ML (VERSED) VIAL IVP ONE (11:45)
[2018-11-16] MEDS ORDERED: MIDAZOLAM 2 MG/2 ML (VERSED) VIAL ONE ×3 (12:13)
[2018-11-16] MEDS ORDERED: HURRICAINE EXT TUBE (BENZOCAINE) ONE (12:13)
[2018-11-16] MEDS ORDERED: fentaNYL INJECTION 100 MCG/2 ML AMP ONE (12:13)
--- NOTE | 2018-11-16 12:21 | Conscious Sedation/ASA ---
Conscious Sedation Pre-Proced Time 12:00 ASA Score 2 For ASA 3 and 4: Consider anesthesia and medical clearance. Also, for patients with a history of failed moderate sedation consider anesthesia. Airway Lungs Heart ASA score ASA 1: a normal healthy patient ASA 2: a patient with a mild systemic disease (mid diabetes, controlled hypertension, obesity ASA 3: a patient with a severe systemic disease that limits activity (angina , COPD, prior Myocardial infarction) ASA 4: a patient with an incapacitating disease that is a constant threat to life (CHF, renal failure) ASA 5: a moribund patient not expected to survive 24 hrs. (ruptured aneurysm) ASA 6: a declared brain- patient whose organs are being harvested. For emergent operations, add the letter E after the classification Mallampati Classification Grade 2 Sedation Plan Analgesia, Amnesia, Plan communicated to team members, Discussed options with patient/fam, Discussed risks with patient/fam The patient is an appropriate candidate to undergo the planned procedure, sedation, and anesthesia. The patient immediately re-assessed prior to indication. DONOVAN BURRELL MD Nov 16, 2018 12:21
--- NOTE | 2018-11-16 12:23 | Progress Note-Pre Operative ---
Pre-Operative Progress Note H&P Reviewed The H&P was reviewed, patient examined and no changes noted. Date Seen by Provider: Nov 16, 2018 Time Seen by Provider: 12:00 Date H&P Reviewed: Nov 16, 2018 Time H&P Reviewed: 12:00 Pre-Operative Diagnosis: GERD DONOVAN BURRELL MD Nov 16, 2018 12:23
[2018-11-16] MEDS ORDERED: ONDANSETRON 4 MG/2 ML (SDV) Z0FRAN ONE (12:25)
[2018-11-16] MEDS ORDERED: PANT40TA2 PO (12:26)
--- NOTE | 2018-11-16 12:27 | Discharge Inst-Surgical ---
D/C Lap Instructions-KIDO New, Converted, or Re-Newed RX: RX on Chart Follow Up Activity as tolerated High Fiber Diet 25g or more per day Avoid Alcohol, Caffeine, Spicy Dietrich and Acid foods. Drink 64 fluid oz or more of fluids per day. Symptoms to Report: Fever over 101 degree F, Nausea/Vomiting If any problems/questions: Contact your physician or go to Emergency Room DONOVAN BURRELL MD Nov 16, 2018 12:27
[2018-11-16] MEDS ORDERED: ONDANSETRON 4 MG/2 ML (SDV) Z0FRAN IV PRN (12:30)
[2018-11-16] MEDS ORDERED: ACETAMINOPHEN 325 MG TABLET PO PRN (12:30)
[2018-11-16] MEDS ORDERED: HYDROcodone/APAP 5 MG/325 MG (LORTAB) TAB PO PRN (12:30)
[2018-11-16] MEDS ORDERED: morphine INJ 10 MG/ML 1ML (SYR OR VIAL) IV PRN (12:30)
--- OUTSIDE RECORDS SUMMARY | 2018-11-16 12:46 | XMS REPORT | Clinical Summary ---
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
--- OUTSIDE RECORDS SUMMARY | 2018-11-16 12:46 | XMS REPORT | Clinical Summary ---
Author Author [facility] Organization [facility] Address Unknown Phone Unavailable Care Team Providers Care Telephone Switchboard Operator Name Role Phone Betzaida Page DO PCP Source Comments Some departments are not documenting in the electronic medical record. If you do not see the information that you expected, contact Release of Information in the Health Information Management department at [phone] for further assistance in locating additional records.[facility] Allergies Comments Active Allergy Reactions Severity Noted Date Penicillins AGITATION Low 05/25/2018 Sulfa (Sulfonamide AGITATION Low 05/25/2018 Antibiotics) Medications End Date Status Medication Sig Dispensed Refills Start Date Active omeprazole DR(+) Take 20 mg by 0 (PRILOSEC) 20 mg capsule mouth daily before breakfast. Active Ascorbic Acid (VITAMIN C) Take by 0 100 mg tab mouth. Active ergocalciferol (vitamin Take by 0 D2) (VITAMIN D PO) mouth. Active estradiol (ESTRACE) 0.01 Insert or 42.5 g 4 05/25/201 % (0.1 mg/g) vaginal Apply one g 8 cream to vaginal area three times weekly. Active Problems Not on file Family History Medical History Relation Name Comments Dementia Father Diabetes Father Heart Disease Father Hypertension Father Parkinson's Father Alzheimer's Maternal Grandmother Alzheimer's Mother Diabetes Mother Cancer-Breast Paternal Aunt Bladder Cancer Paternal Grandmother Relation Name Status Comments Father Maternal Grandmother Mother Alive Paternal Aunt Paternal Grandmother Social History Date Tobacco Use Types Packs/Day Years Used Never Smoker Smokeless Tobacco: Never Used Alcohol Use Drinks/Week oz/Week Comments Yes rarely Sex Assigned at Date Recorded Not on file Industry Job Start Date Occupation Not on file Not on file Not on file Travel End Travel History Travel Start No recent travel history available. Last Filed Vital Signs Time Taken Vital Sign Reading 05/25/2018 12:51 PM CDT Blood Pressure 149/80 05/25/2018 12:51 PM CDT Pulse 94 - Temperature - - Respiratory Rate - - Oxygen Saturation - - Inhaled Oxygen - Concentration 05/25/2018 12:51 PM CDT Weight 86.2 kg (190 lb) 05/25/2018 12:51 PM CDT Height 170.2 cm (5' 7") 05/25/2018 12:51 PM CDT Body Mass Index 29.76 Plan of Treatment Health Maintenance Due Date Last Done Comments PHYSICAL (COMPREHENSIVE) 1974 EXAM HIV SCREENING 1982 DTAP/TDAP VACCINES (1 - 1985 Tdap) CERVICAL CANCER SCREENING 1997 BREAST CANCER SCREENING 2007 COLORECTAL CANCER 2017 SCREENING SHINGLES RECOMBINANT 2017 VACCINE (1 of 2) INFLUENZA VACCINE 02/28/2019 Results Not on filefrom Last 3 Months Insurance Type Payer Benefit Subscriber ID Effective Phone Address Plan / Dates Group PPO [facility] xxxxxxxxxxxx 2018-P [facility] C[facility] resent BLUE Advance Directives Patient has advance care planning documents on file. For more information, please contact: [facility] [address] [facility] [place] [address]
--- OUTSIDE RECORDS SUMMARY | 2018-11-16 12:47 | XMS REPORT | Continuity of Care Document ---
Author Organization Unknown Address Unknown Allergies Active Description Code Type Severity Reaction Onset Reported/Identified Relationship to Patient Clinical Status Yes Penicillins [id number] Drug Allergy Unknown N/A 01/27/2016 Medications There [...] Ot 625.9 11/18/2014 Ot 788.1 11/18/2014 PAULNDER , BEATA S Ot 719.41 11/18/2014 PAULNDER , BEATA S Ot 723.1 11/18/2014 PAULNDER , BEATA S Ot V57.1 11/19/2014 PAULNDER DO, BEATA S Ot 719.41 11/19/2014 PAULNDER DO, BEATA S Ot 723.1 11/19/2014 PAULNDER DO, BEATA S Ot V57.1 11/28/2014 PAULNDER DO, BEATA S Ot 719.41 11/28/2014 PAULNDER DO, BEATA S Ot 723.1 11/28/2014 PAULNDER DO, BEATA S Ot V57.1 02/16/2015 ADRIANAER , BEATA S Ot 719.41 JOINT PAIN-SHLDER 02/16/2015 ADRIANA , BEATA S Ot 723.1 CERVICALGIA 02/16/2015 ADRIANA , BEATA S Ot V57.1 PHYSICAL THERAPY NEC 03/02/2015 Ot 530.81 03/02/2015 Ot 750.3 03/02/2015 Ot 722.91 03/02/2015 Ot 723.1 03/02/2015 Ot 625.9 03/02/2015 Ot 788.1 03/04/2015 STEPHANY HARMON Ot 784.2 03/20/2015 KINGA BOLIVAR, RENA Waldron Ot 353.0 03/20/2015 RENA DONATO MD Ot V57.1 04/02/2015 Ot 530.81 04/02/2015 Ot 750.3 04/02/2015 Ot 722.91 04/02/2015 Ot 723.1 04/02/2015 Ot 625.9 04/02/2015 Ot 788.1 04/02/2015 KINGA BOLIVAR, RENA Waldron Ot 353.0 04/02/2015 RENA DONATO MD Ot V57.1 04/02/2015 STEPHANY HARMON Ot 784.2 04/13/2015 RENA DONATO MD Ot 353.0 BRACHIAL PLEXUS LESIONS 04/13/2015 RENA DONATO MD Ot V57.1 PHYSICAL THERAPY NEC 04/18/2015 Ot 530.81 04/18/2015 Ot 750.3 04/18/2015 Ot 722.91 04/18/2015 Ot 723.1 04/18/2015 Ot 625.9 04/18/2015 Ot 788.1 04/18/2015 STEPHANY HARMONP Ot 784.2 04/18/2015 FÁTIMA FITZPATRICK BEATA S Ot 719.49 04/18/2015 FÁTIMA FITZPATRICK BEATA S Ot 780.79 04/19/2015 Ot 530.81 04/19/2015 Ot 750.3 04/19/2015 Ot 722.91 04/19/2015 Ot 723.1 04/19/2015 Ot 625.9 04/19/2015 Ot 788.1 04/19/2015 STEPHANY HARMONP Ot 784.2 04/19/2015 FÁTIMA FITZPATRICK BEATA S Ot 719.49 04/19/2015 SHENA LOVELL DOLINE S Ot 780.79 11/02/2015 KINGA BOLIVAR, RENA Waldron Ot 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 11/23/2015 Ot 530.81 ESOPHAGEAL REFLUX 11/23/2015 Ot 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 11/23/2015 Ot 722.91 DISC DIS NEC /NOS-CERV 11/23/2015 Ot 723.1 CERVICALGIA 11/23/2015 Ot 625.9 FEM GENITAL SYMPTOMS NOS 11/23/2015 Ot 788.1 DYSURIA 11/23/2015 STEPHANY HARMONP Ot 784.2 SWELLING IN HEAD NECK 11/23/2015 SHENA LOVELL DOLINE S Ot 719.49 JOINT PAIN-MULT JTS 11/23/2015 FÁTIMA FITZPATRICK BEATA S Ot 780.79 OTH MALAISE FATIGUE 11/27/2015 INDRA BOLIVAR, DONOVAN Ot Z01.818 ENCOUNTER FOR OTHER PREPROCEDURAL EXAMIN 12/02/2015 Ot 530.81 ESOPHAGEAL REFLUX 12/02/2015 Ot 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 12/02/2015 Ot 722.91 DISC DIS NEC /NOS-CERV 12/02/2015 Ot 723.1 CERVICALGIA 12/02/2015 Ot 625.9 FEM GENITAL SYMPTOMS NOS 12/02/2015 Ot 788.1 DYSURIA 12/02/2015 STEPHANY HARMON INVESTMENT COUNSELOR Ot 784.2 SWELLING IN HEAD NECK 12/02/2015 SHENA LOVELL DOLINE S Ot 719.49 JOINT PAIN-MULT JTS 12/02/2015 PAULBALDEMARTONY SHENA FITZPATRICKLINE S Ot 780.79 OTH MALAISE FATIGUE 12/02/2015 DONOVAN BURRELL MD Ot Z01.818 ENCOUNTER FOR OTHER PREPROCEDURAL EXAMIN 12/03/2015 JAMIA FITZPATRICK RENA F Ot M23.204 DERANG OF UNSP MEDIAL MENISCUS DUE TO OL 12/03/2015 JAMIA FITZPATRICK RENA F Ot 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 [CLARIBEL] 12/07/2015 Ot 530.81 ESOPHAGEAL REFLUX 12/07/2015 Ot 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 12/07/2015 Ot 722.91 DISC DIS NEC /NOS-CERV 12/07/2015 Ot 723.1 CERVICALGIA 12/07/2015 Ot 625.9 FEM GENITAL SYMPTOMS NOS 12/07/2015 Ot 788.1 DYSURIA 12/07/2015 STEPHANY HARMONP Ot 784.2 SWELLING IN HEAD NECK 12/07/2015 SHENA LOVELL DOLINE S Ot 719.49 JOINT PAIN-MULT JTS 12/07/2015 SHENA LOVELL DOLINE S Ot 780.79 OTH MALAISE FATIGUE [...] BURRELL MD Ot R10.13 EPIGASTRIC PAIN 01/21/2016 DONOVNA BURRELL MD Ot R10.32 LEFT LOWER QUADRANT [...] REFLUX DISEASE WITH ES 01/27/2016 DONOVAN BURRELL MD Ot K29.70 GASTRITIS, UNSPECIFIED, WITHOUT BLEEDING 01/27/2016 DONOAVN BURRELL MD Ot K44.9 DIAPHRAGMATIC HERNIA WITHOUT OBSTRUCTION 01/27/2016 DONOVAN BURRELL MD Ot K57.90 DVRTCLOS OF INTEST, PART UNSP, W/O PERF 01/27/2016 DONOVAN BURRELL MD, Ot K63.5 POLYP OF COLON 01/27/2016 DONOVAN BURRELL MD Ot K64.0 FIRST DEGREE HEMORRHOIDS 02/01/2016 DONOVAN BURRELL MD Ot K21.0 GASTRO-ESOPHAGEAL REFLUX DISEASE WITH ES 02/01/2016 DONOVAN BURRELL MD, Ot K29.70 GASTRITIS, UNSPECIFIED, WITHOUT BLEEDING 02/01/2016 DONOVAN BURRELL MD Ot K44.9 DIAPHRAGMATIC HERNIA WITHOUT OBSTRUCTION 02/01/2016 [...] Ot 784.2 SWELLING IN HEAD NECK 07/18/2016 BEATA LOVELL DO Ot 719.49 JOINT PAIN-MULT JTS 07/18/2016 BEATA LOVELL DO Ot 780.79 OTH MALAISE FATIGUE 07/18/2016 [...] NOS 07/18/2016 Ot 788.1 DYSURIA 07/18/2016 STEPHANY HARMONP Ot 784.2 SWELLING IN HEAD NECK 07/18/2016 FÁTIMA FITZPATRICK, BEATA S Ot 719.49 JOINT PAIN-MULT JTS 07/18/2016 MAXIM LOVELL DOQUELINE S Ot 780.79 OTH MALAISE FATIGUE 07/18/2016 DONOVAN BURRELL MD Ot Z01.818 ENCOUNTER FOR OTHER PREPROCEDURAL EXAMIN 07/18/2016 RENA BLANDON DO Ot M23.204 DERANG OF UNSP MEDIAL MENISCUS DUE TO OL 07/18/2016 RENA BLANDON DO Ot 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 [[place]] 07/15/2017 Ot 722.91 DISC DIS NEC /NOS-CERV 07/15/2017 Ot 723.1 CERVICALGIA 07/15/2017 Ot 625.9 FEM GENITAL SYMPTOMS NOS 07/15/2017 Ot 788.1 DYSURIA 07/15/2017 STEPHANY HARMONP Ot 784.2 SWELLING IN HEAD NECK 07/15/2017 ORENICHOLE FITZPATRICK, BEATA S Ot 719.49 JOINT PAIN-MULT JTS 07/15/2017 MAXIM LOVELL DOQUELINE S Ot 780.79 OTH MALAISE FATIGUE 07/15/2017 DONOVAN BURRELL MD Ot Z01.818 ENCOUNTER FOR OTHER PREPROCEDURAL EXAMIN 07/15/2017 RENA BLANDON DO Ot M23.204 DERANG OF UNSP MEDIAL MENISCUS DUE TO OL 07/15/2017 RENA BLANDON DO Ot 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 [[place]] 07/16/2017 BRENDA WHEATLEY DO Ot N39.0 URINARY TRACT INFECTION, SITE NOT SPECIF 07/16/2017 BRENDA WHEATLEY DO Ot R10.12 LEFT UPPER QUADRANT PAIN 07/16/2017 BRENDA WHEATLEY DO Ot Z90.89 ACQUIRED ABSENCE OF OTHER ORGANS 07/16/2017 BRENDA WHEATLEY DO Ot Z98.890 OTHER SPECIFIED POSTPROCEDURAL STATES 11/15/2017 MARCK BOLIVAR FACC, JOSE BURNHAM CCDS Ot 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 11/15/2017 MARCK BOLIVAR FACC, ALI FACP CCDS Ot R00.2 PALPITATIONS 11/15/2017 MARCK BOLIVAR FACC, ALI FACP CCDS Ot R06.02 SHORTNESS OF BREATH 11/16/2017 MARCK BOLIVAR FACC, ALI FACP CCDS Ot 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 11/16/2017 MARCK BOLIVAR FACC, ALI FACP CCDS Ot R00.2 PALPITATIONS 11/16/2017 MARCK BOLIVAR FACC, ALI FACP CCDS Ot R06.02 SHORTNESS OF BREATH 11/22/2017 MARCK BOLIVAR FACC, ALI FACP CCDS Ot 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 11/22/2017 MARCK BOLIVAR FACC, ALI FACP CCDS Ot R00.2 PALPITATIONS 11/22/2017 MARCK BOLIVAR FACC, ALI FACP CCDS Ot R06.02 SHORTNESS OF BREATH 11/23/2017 JAMIA DO, RENA F Ot 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, LEFT KNEE 11/23/2017 JAMIA DO, RENA F Ot M94.8X8 OTHER SPECIFIED DISORDERS OF CARTILAGE, 11/24/2017 JAMIA DO, RENA F Ot 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, LEFT KNEE 11/24/2017 JAMIA DO, RENA F Ot M94.8X8 OTHER SPECIFIED DISORDERS OF CARTILAGE, 11/24/2017 MARCK BOLIVAR FACC, ALI FACP CCDS Ot 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 11/24/2017 MARCK BOLIVAR FACC, ALI FACP CCDS Ot R00.2 PALPITATIONS 11/24/2017 MARCK BOLIVAR FACC, ALI FACP CCDS Ot R06.02 SHORTNESS OF BREATH 11/24/2017 JAMIA DO, RENA F Ot 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, LEFT KNEE 11/24/2017 JAMIA DO, RENA F Ot M94.8X8 OTHER SPECIFIED DISORDERS OF CARTILAGE, 11/25/2017 JAMIA DO, RENA F Ot 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, LEFT KNEE 11/25/2017 JAMIA DO, RENA F Ot M94.8X8 OTHER SPECIFIED DISORDERS OF CARTILAGE, 12/13/2017 JAMIA DO, RENA F Ot 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, LEFT KNEE 12/13/2017 JAMIA DO, RENA F Ot M94.8X8 OTHER SPECIFIED DISORDERS OF CARTILAGE, 12/21/2017 MARCK BOLIVAR [facility], ALI [facility] CCDS Ot 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 12/21/2017 MARCK BOLIVAR [facility], ALI [facility] CCDS Ot R00.2 PALPITATIONS 12/21/2017 MARCK BOLIVAR [facility] CCD[facility] Ot R06.02 SHORTNESS OF BREATH 01/02/2018 ALEJANDRINA MONTANEZ MD Ot K21.9 GASTRO-ESOPHAGEAL REFLUX DISEASE WITHOUT 01/02/2018 ALEJANDRINA MONTANEZ MD Ot N39.0 URINARY TRACT INFECTION, SITE NOT SPECIF 01/02/2018 ALEJANDRINA MONTANEZ MD, Ot R30.0 DYSURIA 01/02/2018 ALEJANDRINA MONTANEZ MD, Ot Z87.19 PERSONAL HISTORY OF OTHER DISEASES OF TH 01/02/2018 ALEJANDRINA MONTANEZ MD, Ot Z87.442 PERSONAL HISTORY OF URINARY CALCULI 01/02/2018 ALEJANDRINA MONTANEZ MD, Ot Z88.0 ALLERGY STATUS TO PENICILLIN 01/02/2018 ALEJANDRINA MONTANEZ MD, Ot Z90.49 ACQUIRED ABSENCE OF OTHER SPECIFIED PART 01/02/2018 ALEJANDRINA MONTANEZ MD Ot Z90.89 ACQUIRED ABSENCE OF OTHER ORGANS 01/02/2018 ALEJANDRINA MONTANEZ MD Ot Z98.51 TUBAL LIGATION STATUS 10/01/2018 EMMA SANFORD MD Ot J32.9 CHRONIC SINUSITIS, UNSPECIFIED 10/01/2018 EMMA SANFORD MD Ot 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 10/01/2018 EMMA SANFORD MD Ot M67.88 OTHER SPECIFIED DISORDERS OF SYNOVIUM AN 10/01/2018 EMMA SANFORD MD Ot 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 Results Test Result Range Complete urinalysis with reflex to culture - 07/16/17 00:23 Urine color determination YELLOW NRG Urine clarity determination SLIGHTLY CLOUDY NRG Urine pH measurement by test strip 6.5 5-9 Specific gravity of urine by test strip 1.020 1.016- 1.022 Urine protein assay by test strip, semi-quantitative NEGATIVE NEGATIVE Urine glucose detection by automated test strip NEGATIVE NEGATIVE Erythrocytes detection in urine sediment by light microscopy 1+ NEGATIVE Urine ketones detection by automated test strip NEGATIVE NEGATIVE Urine nitrite detection by test strip NEGATIVE NEGATIVE Urine total bilirubin detection by test strip NEGATIVE NEGATIVE Urine urobilinogen measurement by automated test strip (mass/volume) NORMAL NORMAL Urine leukocyte esterase detection by dipstick 3+ NEGATIVE Automated urine sediment erythrocyte count by microscopy (number/high power field) [HPF] NRG Automated urine sediment leukocyte count by microscopy (number/high power field ) [HPF] NRG Bacteria detection in urine sediment by light microscopy LARGE NRG Squamous epithelial cells detection in urine sediment by light microscopy 10-25 NRG Crystals detection in urine sediment by light microscopy NONE NRG Casts detection in urine sediment by light microscopy NONE NRG Mucus detection in urine sediment by light microscopy NEGATIVE NRG Complete urinalysis with reflex to culture YES NRG Bacterial urine culture - 07/16/17 00:23 URINE CULTURE RESULTS <10,000/ML NRG Complete blood count (CBC) with automated white blood cell (WBC) differential - 07/16/17 01:07 Blood leukocytes automated count (number/volume) 8.4 10*3/uL 4.3-11.0 Blood erythrocytes automated count (number/volume) 4.29 10*6/uL 4.35-5.85 Venous blood hemoglobin measurement (mass/volume) 12.2 g/dL 11.5-16.0 Blood hematocrit (volume fraction) 36 % 35-52 Automated erythrocyte mean corpuscular volume 84 [foz_us] 80-99 Automated erythrocyte mean corpuscular hemoglobin (mass per erythrocyte) 28 pg 25-34 Automated erythrocyte mean corpuscular hemoglobin concentration measurement ( mass/volume) 34 g/dL 32-36 Automated erythrocyte distribution width ratio 12.6 % 10.0-14.5 Automated blood platelet count (count/volume) 293 10*3/uL 130-400 Automated blood platelet mean volume measurement 9.3 [foz_us] 7.4-10.4 Automated blood neutrophils/100 leukocytes 57 % 42-75 Automated blood lymphocytes/100 leukocytes 28 % 12-44 Blood monocytes/100 leukocytes 12 % 0-12 Automated blood eosinophils/100 leukocytes 2 % 0-10 Automated blood basophils/100 leukocytes 1 % 0-10 Blood neutrophils automated count (number/volume) 4.8 10*3 1.8-7.8 Blood lymphocytes automated count (number/volume) 2.4 10*3 1.0-4.0 Blood monocytes automated count (number/volume) 1.0 10*3 0.0-1.0 Automated eosinophil count 0.2 10*3/uL 0.0-0.3 Automated blood basophil count (count/volume) 0.1 10*3/uL 0.0-0.1 Comprehensive metabolic panel - 07/16/17 01:07 Serum or plasma sodium measurement (moles/volume) 141 mmol/L 135-145 Serum or plasma potassium measurement (moles/volume) 3.7 mmol/L 3.6-5.0 Serum or plasma chloride measurement (moles/volume) 108 mmol/L 98-107 Carbon dioxide 21 mmol/L 21-32 Serum or plasma anion gap determination (moles/volume) 12 mmol/L 5-14 Serum or plasma urea nitrogen measurement (mass/volume) 12 mg/dL 7-18 Serum or plasma creatinine measurement (mass/volume) 0.74 mg/dL 0.60-1.30 Serum or plasma urea nitrogen/creatinine mass ratio 16 NRG Serum or plasma creatinine measurement with calculation of estimated glomerular filtration rate > NRG Serum or plasma glucose measurement (mass/volume) 143 mg/dL 70-105 Serum or plasma calcium measurement (mass/volume) 9.2 mg/dL 8.5-10.1 Serum or plasma total bilirubin measurement (mass/volume) 0.1 mg/dL 0.1-1.0 Serum or plasma alkaline phosphatase measurement (enzymatic activity/volume) 68 U/L 40-136 Serum or plasma aspartate aminotransferase measurement (enzymatic activity/ volume) 16 U/L 5-34 Serum or plasma alanine aminotransferase measurement (enzymatic activity/volume ) 19 U/L 0-55 Serum or plasma protein measurement (mass/volume) 7.1 g/dL 6.4-8.2 Serum or plasma albumin measurement (mass/volume) 4.0 g/dL 3.2-4.5 Serum or plasma amylase measurement (enzymatic activity/volume) - 07/16/17 01: 07 Serum or plasma amylase measurement (enzymatic activity/volume) 28 U /L 25-125 Lipase - 07/16/17 01:07 Lipase 39 U/L 8-78 Complete urinalysis with reflex to culture - 01/02/18 06:20 Urine color determination YELLOW NRG Urine clarity determination VERY CLOUDY NRG Urine pH measurement by test strip 5 5-9 Specific gravity of urine by test strip 1.025 1.016- 1.022 Urine protein assay by test strip, semi-quantitative 2+ NEGATIVE Urine glucose detection by automated test strip NEGATIVE NEGATIVE Erythrocytes detection in urine sediment by light microscopy 2+ NEGATIVE Urine ketones detection by automated test strip NEGATIVE NEGATIVE Urine nitrite detection by test strip NEGATIVE NEGATIVE Urine total bilirubin detection by test strip NEGATIVE NEGATIVE Urine urobilinogen measurement by automated test strip (mass/volume) NORMAL NORMAL Urine leukocyte esterase detection by dipstick 3+ NEGATIVE Automated urine sediment erythrocyte count by microscopy (number/high power field) [HPF] NRG Automated urine sediment leukocyte count by microscopy (number/high power field ) TNTC NRG Bacteria detection in urine sediment by light microscopy MODERATE NRG Squamous epithelial cells detection in urine sediment by light microscopy 0-2 NRG Crystals detection in urine sediment by light microscopy NONE NRG Casts detection in urine sediment by light microscopy NONE NRG Mucus detection in urine sediment by light microscopy NEGATIVE NRG Complete urinalysis with reflex to culture YES NRG Bacterial urine culture - 01/02/18 06:20 Bacterial urine culture SEE COMMEN NRG COLONY COUNT . NRG FTX;REPORTABLE 30,000 CFU/ML NRG FREE TEXT ENTRY 2 SENSITIVITY REPORTED 01/05/18 08:05 NRG FREE TEXT ENTRY 3 ESBL REPORTED BY [facility] () 01/05/18 7:35 NR RML Sensitivity Panel - 01/02/18 06:20 Gentamicin susceptibility test by minimum inhibitory concentration > NRG Trimethoprim/sulfamethoxazole susceptibility test by minimum inhibitoryconcentration > NRG Levofloxacin susceptibility test by minimum inhibitory concentration > NRG Ampicillin susceptibility test by minimum inhibitory concentration > NRG Cefazolin susceptibility test by minimum inhibitory concentration > NRG Ceftriaxone susceptibility test by minimum inhibitory concentration > NRG Meropenem susceptibility test by minimum inhibitory concentration < = NRG Nitrofurantoin susceptibility test by minimum inhibitory concentration <= NRG Amoxicillin and clavulanate potassium susc AYAKA R NRG Complete blood count (CBC) with automated white blood cell (WBC) differential - 01/02/18 08:14 Blood leukocytes automated count (number/volume) 8.4 10*3/uL 4.3-11.0 Blood erythrocytes automated count (number/volume) 4.48 10*6/uL 4.35-5.85 Venous blood hemoglobin measurement (mass/volume) 12.8 g/dL 11.5-16.0 Blood hematocrit (volume fraction) 38 % 35-52 Automated erythrocyte mean corpuscular volume 84 [foz_us] 80-99 Automated erythrocyte mean corpuscular hemoglobin (mass per erythrocyte) 29 pg 25-34 Automated erythrocyte mean corpuscular hemoglobin concentration measurement ( mass/volume) 34 g/dL 32-36 Automated erythrocyte distribution width ratio 12.9 % 10.0-14.5 Automated blood platelet count (count/volume) 296 10*3/uL 130-400 Automated blood platelet mean volume measurement 9.3 [foz_us] 7.4-10.4 Automated blood neutrophils/100 leukocytes 73 % 42-75 Automated blood lymphocytes/100 leukocytes 17 % 12-44 Blood monocytes/100 leukocytes 8 % 0-12 Automated blood eosinophils/100 leukocytes 1 % 0-10 Automated blood basophils/100 leukocytes 1 % 0-10 Blood neutrophils automated count (number/volume) 6.1 10*3 1.8-7.8 Blood lymphocytes automated count (number/volume) 1.4 10*3 1.0-4.0 Blood monocytes automated count (number/volume) 0.7 10*3 0.0-1.0 Automated eosinophil count 0.1 10*3/uL 0.0-0.3 Automated blood basophil count (count/volume) 0.0 10*3/uL 0.0-0.1 Comprehensive metabolic panel - 01/02/18 08:14 Serum or plasma sodium measurement (moles/volume) 140 mmol/L 135-145 Serum or plasma potassium measurement (moles/volume) 3.9 mmol/L 3.6-5.0 Serum or plasma chloride measurement (moles/volume) 108 mmol/L 98-107 Carbon dioxide 22 mmol/L 21-32 Serum or plasma anion gap determination (moles/volume) 10 mmol/L 5-14 Serum or plasma urea nitrogen measurement (mass/volume) 10 mg/dL 7-18 Serum or plasma creatinine measurement (mass/volume) 0.68 mg/dL 0.60-1.30 Serum or plasma urea nitrogen/creatinine mass ratio 15 NRG Serum or plasma creatinine measurement with calculation of estimated glomerular filtration rate > NRG Serum or plasma glucose measurement (mass/volume) 110 mg/dL 70-105 Serum or plasma calcium measurement (mass/volume) 8.8 mg/dL 8.5-10.1 Serum or plasma total bilirubin measurement (mass/volume) 0.5 mg/dL 0.1-1.0 Serum or plasma alkaline phosphatase measurement (enzymatic activity/volume) 59 U/L 40-136 Serum or plasma aspartate aminotransferase measurement (enzymatic activity/ volume) 17 U/L 5-34 Serum or plasma alanine aminotransferase measurement (enzymatic activity/volume ) 17 U/L 0-55 Serum or plasma protein measurement (mass/volume) 7.3 g/dL 6.4-8.2 Serum or plasma albumin measurement (mass/volume) 4.1 g/dL 3.2-4.5 Serum or plasma choriogonadotropin ( test) detection - 01/02/18 08:14 Serum or plasma choriogonadotropin ( test) detection NEGATIVE NEGATIVE Urine beta human chorionic gonadotropin (hCG) measurement - 11/16/18 11:40 Urine beta human chorionic gonadotropin (hCG) measurement NEGATIVE NEGATIVE Encounters ACCT No. Visit Date/Time Discharge Status Pt. Type Provider Facility Loc./Unit Complaint [id number] 11/09/2018 05:50:00 11/09/2018 14:13:00 DIS Outpatient DONOVAN BURRELL MD [facility] PREOP EGD [id number] 09/28/2018 09:02:00 09/28/2018 23:59:59 CLS Outpatient EMMA SANFORD MD [facility] RAD CHRONIC SINUS [id number] 01/02/2018 06:04:00 01/02/2018 09:44:00 DIS Emergency ALEJANDRINA MONTANEZ MD [facility] ER POSS UTI [id number] 11/22/2017 16:47:00 11/22/2017 23:59:59 CLS Outpatient RENA BLANDON DO [facility] RAD IMM-LEFT KNEE PAIN, CHONDROMALACIA [id number] 11/14/2017 12:23:00 11/14/2017 23:59:59 CLS Outpatient MARCK BOLIVAR FACCJOSE FACP CCDS [facility] CARD R00.2 PALPITATIONS [id number] 07/15/2017 23:28:00 07/16/2017 03:52:00 DIS Emergency CORRY BRENDA FITZPATRICK [facility] ER L SIDE PAIN [id number] 01/27/2016 08:28:00 01/27/2016 11:30:00 DIS Outpatient DONOVAN BURRELL MD [facility] EPIGASTIC PAIN, LEFT LOWER QUAD PAIN [id number] 01/21/2016 10:30:00 01/21/2016 16:00:00 DIS Outpatient DONOVAN BURRELL MD [facility] PREOP EPIGASTIC PAIN,LEFT LOWER QUAD PAIN [id number] 12/04/2015 13:00:00 12/04/2015 23:59:59 CLS Preadmit DONOVAN BURRELL MD [facility] LEFT LOWER QUAD PAIN, EPIGASTRIC PAIN [id number] 12/02/2015 10:46:00 12/02/2015 23:59:59 CLS Outpatient RENA BLANDON DO [facility] RAD TMM LEFT KNEE [id number] 11/26/2015 06:13:00 11/26/2015 23:59:59 CLS Outpatient DONOVAN BURRELL MD [facility] PREOP LEFT LOWER QUAD PAIN, EPIGASTRIC PAIN [id number] 11/02/2015 08:03:00 11/02/2015 12:17:00 DIS Outpatient RENA DONATO MD [facility] REHAB NTOS [id number] 03/30/2015 08:00:00 04/13/2015 11:55:00 DIS Outpatient RENA DONATO MD [facility] REHAB THORACIC OUTLET SYNDROME/BRACHIAL PLEXUS LESIONS [id number] 04/02/2015 10:30:00 04/02/2015 23:59:59 CLS Outpatient BEATA LOVELL DO [facility] RAD OSTEOPOROSIS [id number] 03/02/2015 08:59:00 03/02/2015 23:59:59 CLS Outpatient TRACEYBalajiRICKS STEPHANY Hernandez INVESTMENT COUNSELOR [facility] RAD NECK MASS [id number] 02/02/2015 08:00:00 02/16/2015 10:22:00 DIS Outpatient PAULNICHOLE BEATA S [facility] REHAB NECK AND SHOULDER PAIN [id number] 05/17/2013 07:59:00 07/01/2013 08:37:00 DIS Outpatient JAMIA DO RENA Waldron [facility] REHAB S/P L SHOULDER LABRAL REPAIR AND SAD [id number] 01/26/2013 10:49:00 01/26/2013 23:59:59 CLS Outpatient TRA GOMEZ INVESTMENT COUNSELOR [facility] QUICK STEROID SHOT [id number] 01/23/2013 08:40:00 01/23/2013 23:59:59 CLS Outpatient GABI MEMBRENO INVESTMENT COUNSELOR [facility] QUICK RASH [id number] 11/16/2018 11:36:00 ACT Outpatient DONOVAN BURRELL MD [facility] ENDO REFLUX/ABD PAIN [id number] 07/18/2016 08:15:00 Document Registration [id number] 07/18/2016 08:15:00 Document Registration [id number] 10/30/2012 10:09:00 Document Registration [id number] 10/11/2012 07:59:00 Document Registration [id number] 09/25/2012 11:11:00 Document Registration [id number] 06/29/2012 12:22:00 Document Registration [id number] 05/04/2012 15:20:00 Document Registration [id number] 08/15/2011 06:38:00 Document Registration [id number] 07/27/2010 14:09:00 Document Registration [id number] 12/02/2006 11:42:00 Document Registration [id number] 06/07/2018 11:54:00 06/07/2018 23:59:00 DIS Outpatient Betzaida Page 08/201701/14/2018 06:04:15 01/14/2018 23:59:59 [facility] Outpatient Beata Lovell
[2018-11-16 13:25] VITALS: BP 142/71
--- NOTE | 2018-11-16 13:34 | Progress Note-Post Operative ---
Post-Operative Progess Note Surgeon (s)/Music Sound Light Technician (s) Surgeon DONOVAN BURRELL MD Music Sound Light Technician: none Pre-Operative Diagnosis GERD Post-Operative Diagnosis reflux esophagitis(stage 2), moderate sized HH(3-4cm), mild gastritis. Procedure & Operative Findings Date of Procedure 11/16/18 Procedure Performed/Findings EGD with bx. Anesthesia Type cs Estimated Blood Loss Estimated blood loss (mL): minimal Specimens/Packing Specimens Removed ge jxn, antrum DONOVAN BURRELL MD Nov 16, 2018 13:34
[2018-11-16 13:55] VITALS: BP 137/75
[2018-11-16 14:05] VITALS: BP 137/75
--- NOTE | 2018-11-17 00:34 | OPERATIVE REPORT ---
DATE OF SERVICE: 11/16/2018 ATTENDING PRIMARY CARE PHYSICIAN: Dr. Lovell. PREOPERATIVE DIAGNOSES: Epigastric and left upper abdominal quadrant pain. POSTOPERATIVE DIAGNOSES: Reflux esophagitis, stage II, moderate size hiatal hernia, which appears to be a type 2 paraesophageal hernia, moderate gastritis, mild duodenitis. PROCEDURE: EGD with biopsy. SURGEON: Donovan Burrell MD ANESTHESIA: Conscious sedation. ESTIMATED BLOOD LOSS: Minimal. FINDINGS: As above in the postop. DISPOSITION: The patient tolerated the procedure well. INDICATIONS: The patient is a 53-year-old female known to us. She underwent an EGD and colonoscopy in 2014. The upper endoscopy showed a reflux esophagitis, stage II as well as a small hiatal hernia, which was only approximately 1.5 cm at that time. She was medically managed; however, states that she has had a significant recurrence of symptoms including epigastric pain as well as pain in the left upper abdominal quadrant. She was on omeprazole. However, states that this became ineffective and was started on Protonix 4 days ago. She states at this time that her symptoms still have not improved. DESCRIPTION OF PROCEDURE: The patient was brought to the endoscopy suite, laid in the left lateral decubitus position. After adequate IV pain and sedative medications and conscious sedation anesthesia, the mouthpiece was applied. Endoscope was placed in the mouth, visualizing the pharynx and hypopharyngeal region. Vocal cords, epiglottis and vallecula identified and appeared to be normal. Endoscope was then gently intubated in the esophageal opening and esophagus insufflated. The endoscope was then advanced through the first, second and third portions of the esophagus at the level of GE junction, a reflux esophagitis stage II identified. There were no ulcers or strictures identified in this region. A biopsy was taken with forceps with visualization of good hemostasis. The endoscope was then advanced in the stomach and endoscope retroflexed, visualizing of a hiatal hernia; however, this was larger approximately more in 3 to 4 cm range and appears to be more of a type 2 paraesophageal hernia. There were no Aries ulcers or any bleeding. There was moderate severity gastritis as well as a mild duodenitis. There were no formal ulcerations, polyps or any neoplasms. A biopsy was taken of the antrum to rule out H. pylori with visualization of good hemostasis. The endoscope was then slowly withdrawn while taking a second look and suctioning of residual air with no additional findings. The patient tolerated the procedure well. We will continue with medical management for now on the pantoprazole 40 mg daily as well as the necessary lifestyle and diet accommodation including small and more frequent meals, avoidance of eating at night as well as head elevation while lying supine. She also needs to avoid alcohol caffeinated beverages as well as spicy, greasy and acidic foods. If she does not get symptomatic relief after a short interval medical management, we will recommend repairing this type of hiatal hernia; however, we will proceed with proper testing, which would include an esophageal manometry to rule out any esophageal dysmotility is before proceeding with an antireflux procedure. Job ID: [id number] DocumentID: [id number] Dictated Date: 11/16/2018 13:02:36 Chief Relay Tester Date: 11/17/2018 00:33:42 Dictated By: DONOVAN BURRELL MD
== END 2018-11-16 14:10 | disposition home or self-care (01) ==
LOC: ENDO 11:36
PROVIDERS: ATTEND Surgery
DX: K21.0 Gastro-esophageal reflux disease with esophagitis (principal); K44.9 Diaphragmatic hernia without obstruction or gangrene; K29.70 Gastritis, unspecified, without bleeding; K29.80 Duodenitis without bleeding; K58.9 Irritable bowel syndrome, unspecified; G54.0 Brachial plexus disorders
CPT/HCPCS: 84703; 88305

== ENCOUNTER 2019-02-18 08:49 | Outpatient (CLI) | payer BC ==
[~2019-02-18] VITALS: Ht 170.2 cm; Wt 85.9 kg
[~2019-02-18 08:49] MED LIST changes: +PANT40TA2 PO
[2019-02-18] MEDS ORDERED: ONDA4TAB11 PO (09:00)
[2019-02-18] MEDS ORDERED: CHOL2000 PO (09:00)
[2019-02-18] MEDS ORDERED: OMEP20CA12 PO (09:00)
[2019-02-18] MEDS ORDERED: LACT1CAP72 PO (09:00)
[2019-02-18] MEDS ORDERED: FLUT9.9S NS (09:00)
[2019-02-18] MEDS ORDERED: ASCO500C15 PO (09:00)
[2019-02-18 09:04] VITALS: BP 139/79
[2019-02-18 10:18] LABS: BASOPHILS % (AUTO) 1 % (0-10); EOSINOPHILS # (AUTO) 0.1 10^3/uL (0.0-0.3); EOSINOPHILS % (AUTO) 1 % (0-10); HEMATOCRIT 40 % (35-52); HEMOGLOBIN 13.1 G/DL (11.5-16.0); LYMPHOCYTES # (AUTO) 1.8 X 10^3 (1.0-4.0); LYMPHOCYTES % (AUTO) 28 % (12-44); MEAN CORPUSCULAR HEMOGLOBIN 27 PG (25-34); MEAN CORPUSCULAR HGB CONC 33 G/DL (32-36); MEAN CORPUSCULAR VOLUME 84 FL (80-99); MEAN PLATELET VOLUME 9.8 FL (7.4-10.4); MONOCYTES # (AUTO) 0.7 X 10^3 (0.0-1.0); MONOCYTES % (AUTO) 10 % (0-12); NEUTROPHILS # (AUTO) 3.9 X 10^3 (1.8-7.8); NEUTROPHILS % (AUTO) 60 % (42-75); PLATELET COUNT 307 10^3/uL (130-400); RED CELL DISTRIBUTION WIDTH 13.2 % (10.0-14.5); WHITE BLOOD COUNT 6.5 10^3/uL (4.3-11.0)
[2019-02-21] MEDS ORDERED: HYDR-34 PO (12:48)
== END 2019-02-18 12:01 | disposition home or self-care (01) ==
LOC: PREOP 08:49
PROVIDERS: ATTEND Surgery
DX: Z01.812 Encounter for preprocedural laboratory examination (principal); K44.9 Diaphragmatic hernia without obstruction or gangrene
CPT/HCPCS: 36415; 85025; 87081

== ENCOUNTER 2019-08-31 09:53 | Emergency (ER) | payer BC ==
[~2019-08-31] VITALS: Ht 170.1 cm; Wt 84.3 kg
[~2019-08-31 09:53] MED LIST changes: +ASCO500C15 PO; +CHOL2000 PO; +FLUT9.9S NS; +HYDR-34 PO; +LACT1CAP72 PO; +OMEP-280 PO; +ONDA4TAB11 PO
[2019-08-31] MEDS ORDERED: NS IV 500 ML 500 ML IV ONE (10:03)
[2019-08-31] MEDS ORDERED: FAMOTIDINE 20MG/2ML IV (PEPCID) IV STA (10:07)
--- NOTE | 2019-08-31 10:07 | ED Abdominal Pain ---
General Stated Complaint: L SIDE PAIN Source of Information: Patient, Spouse Exam Limitations: No Limitations History of Present Illness Date Seen by Provider: Aug 31, 2019 Time Seen by Provider: 09:57 Initial Comments The patient presents to the ER by private conveyance from home with her significant other and chief complaint that for the past year she's been having intermittent left upper quadrant abdominal pains. She has a history of just prior to that having hiatal hernia surgery by Dr. Faustin. She's also had her gallbladder out as well as tubal ligation in the past. [place], 4 days ago she started experiencing more persistent pain, constipation and describes it as sharp, intermittent, colicky and worse after eating. She also feels bloated having lots of gas and nausea. She's taken Zofran with modest relief. She has a history of diverticulosis. She did finally have her last bowel movement yesterday that was hard and constipated at first followed by loose watery stool. No blood noted. She has not vomited. She felt hot and feverish all day yesterday but did not have a thermometer at work. She took some ibuprofen yesterday as well as some Gas-X which gave her minimal relief of her symptoms. Today she took Zofran a few hours ago but nothing else. Her last oral intake was 0 8:30, an hour and a half prior to arrival she ate turkey daugherty and had something to drink. She said it did not sit well on her stomach and made her symptoms worse. She has not had any sore throat, nasal congestion. She was having sharp colicky pain on entry to the ER however presently laying down she says the pain is minimal 2-3 out of 10. She denies a history of hypertriglyceridemia, diabetes. She has not drank lately. She relates that she only drinks about one beer every several months. Allergies and Home Medications Allergies Coded Allergies: Penicillins (Verified Allergy, Mild, RASH, PT HAS RECEIVED ROCEPHIN IN THE PAST, 02/21/19) sulfamethoxazole (Verified Allergy, Mild, RASH, 02/18/19) trimethoprim (Verified Allergy, Mild, RASH, 02/18/19) Home Medications Ascorbic Acid 500 Mg Capsule.er, 500 MG PO DAILY, (Reported) Cholecalciferol (Vitamin D3) 2,000 Unit Capsule, 2,000 UNIT PO DAILY, (Reported) Fluticasone Propionate 9.9 Ml Beatrice.susp, 1 SPRAY NS DAILY, (Reported) 1 SPRAY EACH NARE DAILY Hydrocodone Bit/Acetaminophen 1 Ea Tablet, 1 EACH PO Q4H PRN for PAIN-MODERATE Prescribed by: DONOVAN FAUSTIN on 02/21/19 1248 Lactobacillus Combo No.10 1 Each Capsule, 1 EACH PO DAILY, (Reported) Omeprazole 20 Mg Capsule.dr, 20 MG PO DAILY, (Reported) Ondansetron 4 Mg Tab.rapdis, 4 MG PO Q4H PRN for NAUSEA/VOMITING, (Reported) Pantoprazole Sodium 40 Mg Tablet.dr, 40 MG PO DAILY Prescribed by: DONOVAN FAUSTIN on 11/16/18 1226 Patient Home Medication List Home Medication List Reviewed: Yes Review of Systems Review of Systems Constitutional: chills, fever (subjective) EENTM: No Blurred Vision, No Double Vision Respiratory: Denies Cough, Denies Shortness of Air Cardiovascular: Denies Chest Pain, Denies Edema Gastrointestinal: See HPI, Abdominal Pain, Constipated, Diarrhea, Nausea, Poor Appetite, Poor Fluid Intake Genitourinary: Denies Burning, Denies Discharge Musculoskeletal: No back pain, No joint pain Skin: No pruritus, No rash Psychiatric/Neurological: Denies Headache, Denies Numbness All Other Systems Reviewed Negative Unless Noted: Yes Past Upivpiu-Hamgys-Jdhmcl Hx Patient Social History Alcohol Use: Rarely Uses Alcohol Beverage of Choice: Beer (one beer every 3 months) Recreational Drug Use: No Smoking Status: Never a Smoker 2nd Hand Smoke Exposure: No Recent Foreign Travel: No Contact w/Someone Who Travel: No Recent Hopitalizations: No Immunizations Up To Date Date of Influenza Vaccine: Apr 30, 2018 Seasonal Allergies Seasonal Allergies: No Past Medical History Surgeries: Yes (THORACIS OUTLET SYNDROM-rib removed, shoulder sx, LIPOMA UNDER ARM) Adenoidectomy, Gallbladder, Orthopedic, Tonsillectomy, Tubal Ligation Respiratory: No Cardiac: No (OCC IRREGULAR HEART BEAT-checked out normal) Neurological: No Reproductive Disorders: No 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, Menopausal Sexually Transmitted Disease: No HIV/AIDS: No Genitourinary: Yes (frequent urinary tract infection) Kidney Stones Gastrointestinal: Yes Gastroesophageal Reflux, Esophagitis, Irritable Bowel Musculoskeletal: Yes (THORACIC OUTLET SYNDROME--LEFT FIRST RIB REMOVED) Endocrine: No HEENT: Yes (GLASSES/CONTACTS) Loss of Vision: Denies Hearing Impairment: Denies Cancer: No Psychosocial: No Integumentary: Yes (RASH) Blood Disorders: No Adverse Reaction/Blood Tranf: No (N/A) Physical Exam Vital Signs Vital Signs - First Documented 08/31/19 09:56 Temp 37.3 Pulse 87 Resp 12 B/P (MAP) 160/91 (114) Pulse Ox 97 O2 Delivery Room Air Capillary Refill : Height/Weight/BMI Height: 5'7.00" Weight: 189lbs. 5.0oz. 85.031385ry; 29.7 BMI Method:Stated General Appearance: WD/WN, mild distress HEENT: PERRL/EOMI, TMs normal, pharynx normal Neck: full range of motion, supple, normal inspection Respiratory: lungs clear, normal breath sounds, no respiratory distress, no accessory muscle use Cardiovascular: normal peripheral pulses, regular rate, rhythm Peripheral Pulses: 2+ Radial Pulses (R), 2+ Radial Pulses (L) Gastrointestinal: normal bowel sounds, non tender, soft, spleenomegaly (mild to moderate) Extremities: normal range of motion, non-tender, normal inspection, normal capillary refill Neurologic/Psychiatric: alert, normal mood/affect, oriented x 3 Skin: normal color, warm/dry Progress/Results/Core Measures Results/Orders Lab Results Laboratory Tests Test 08/31/19 10:20 08/31/19 10:26 Range/Units White Blood Count 6.8 4.3-11.0 10^3/uL Red Blood Count 4.88 4.35-5.85 10^6/uL Hemoglobin 13.9 11.5-16.0 G/DL Hematocrit 42 35-52 % Mean Corpuscular Volume 85 80-99 FL Mean Corpuscular Hemoglobin 29 25-34 PG Mean Corpuscular Hemoglobin Concent 34 32-36 G/DL Red Cell Distribution Width 13.1 10.0-14.5 % Platelet Count 234 130-400 10^3/uL Mean Platelet Volume 10.0 7.4-10.4 FL Neutrophils (%) (Auto) 58 42-75 % Lymphocytes (%) (Auto) 30 12-44 % Monocytes (%) (Auto) 10 0-12 % Eosinophils (%) (Auto) 2 0-10 % Basophils (%) (Auto) 1 0-10 % Neutrophils # (Auto) 4.0 1.8-7.8 X 10^3 Lymphocytes # (Auto) 2.0 1.0-4.0 X 10^3 Monocytes # (Auto) 0.7 0.0-1.0 X 10^3 Eosinophils # (Auto) 0.1 0.0-0.3 10^3/uL Basophils # (Auto) 0.1 0.0-0.1 10^3/uL Sodium Level 138 135-145 MMOL/L Potassium Level 4.2 3.6-5.0 MMOL/L Chloride Level 109 H 98-107 MMOL/L Carbon Dioxide Level 16 L 21-32 MMOL/L Anion Gap 13 5-14 MMOL/L Blood Urea Nitrogen 9 7-18 MG/DL Creatinine 0.75 0.60-1.30 MG/DL Estimat Glomerular Filtration Rate > 60 BUN/Creatinine Ratio 12 Glucose Level 96 70-105 MG/DL Calcium Level 9.1 8.5-10.1 MG/DL Corrected Calcium 8.9 8.5-10.1 MG/DL Total Bilirubin 0.4 0.1-1.0 MG/DL Aspartate Amino Transf (AST/SGOT) 19 5-34 U/L Alanine Aminotransferase (ALT/SGPT) 14 0-55 U/L Alkaline Phosphatase 53 40-136 U/L C-Reactive Protein High Sensitivity 0.09 0.00-0.50 MG/DL Total Protein 7.5 6.4-8.2 GM/DL Albumin 4.3 3.2-4.5 GM/DL Lipase 20 8-78 U/L Monoscreen NEGATIVE NEGATIVE Urine Color YELLOW Urine Clarity CLOUDY Urine pH 7.0 5-9 Urine Specific [place] 1.025 H 1.016-1.022 Urine Protein NEGATIVE NEGATIVE Urine Glucose (UA) NEGATIVE NEGATIVE Urine Ketones NEGATIVE NEGATIVE Urine Nitrite NEGATIVE NEGATIVE Urine Bilirubin NEGATIVE NEGATIVE Urine Urobilinogen 0.2 < = 1.0 MG/DL Urine Leukocyte Esterase 1+ H NEGATIVE Urine RBC (Auto) NEGATIVE NEGATIVE Urine RBC NONE /HPF Urine WBC 0-2 /HPF Urine Squamous Epithelial Cells 25-50 H /HPF Urine Crystals NONE /LPF Urine Bacteria MODERATE H /HPF Urine Casts NONE /LPF Urine Mucus NONE /LPF Urine Culture Indicated YES My Orders Orders - JAKI GONZALEZ Ua Culture If Indicated (08/31/19 09:56) Cbc With Automated Diff (08/31/19 10:03) Comprehensive Metabolic Panel (08/31/19 10:03) Lipase (08/31/19 10:03) Hs C Reactive Protein (08/31/19 10:03) Ondansetron Injection (Zofran Injectio (08/31/19 10:15) Ed Iv/Invasive Line Start (08/31/19 10:03) Ns Iv 500 Ml (Sodium Chloride 0.9%) (08/31/19 10:03) Monotest (08/31/19 10:07) Lidocaine 2% Viscous 15 Ml (Xylocaine Vi (08/31/19 10:15) Antacid Suspension (Mylanta Suspension (08/31/19 10:15) Famotidine Injection (Pepcid Injection) (08/31/19 10:07) Urine Culture (08/31/19 10:26) Medications Given in ED Current Medications Medications Dose Ordered Sig/Jose M Route Start Time Stop Time Status Last Admin Dose Admin Al Hydrox/Mg Hydrox/Simethicone 30 ml ONCE ONCE PO 08/31/19 10:15 08/31/19 10:16 DC 08/31/19 11:02 30 ML Lidocaine HCl 15 ml ONCE ONCE PO 08/31/19 10:15 08/31/19 10:16 DC 08/31/19 11:02 15 ML Ondansetron HCl 4 mg ONCE ONCE IVP 08/31/19 10:15 08/31/19 10:16 DC 08/31/19 10:17 4 MG Sodium Chloride 500 ml @ 0 mls/hr Q0M ONCE IV 08/31/19 10:03 08/31/19 10:05 DC 08/31/19 10:19 500 MLS/HR Vital Signs/I&O 08/31/19 09:56 Temp 37.3 Pulse 87 Resp 12 B/P (MAP) 160/91 (114) Pulse Ox 97 O2 Delivery Room Air Progress Progress Note #1: Time: 10:15 Progress Note Benign abdominal exam except for her mild splenomegaly. We'll check a Monospot as well as some basic labs, CRP urinalysis. We'll give her some Zofran for her nausea. She has declined anything for pain at this time. Her pain is colicky in response to what she eats so we'll give her a GI cocktail see if maybe she has peptic ulcer disease, gastritis etc. Could also be related to gastric colic reflex and some mild diverticulitis. If her symptoms do not improve with a GI cocktail we would consider doing a CT scan of her abdomen and pelvis with IV contrast. We'll give her 500 cc fluid bolus as she appears to be mildly dry probably secondary to her decreased intake. Progress Note #2: Time: 11:35 Progress Note Patient's nausea has gone with the Zofran and her abdominal symptoms have pretty much gone away after a GI cocktail. She does have a history of gastritis and a year or so ago the surgery for hiatal hernia. Her blood work does not show any evidence of a bacterial infection or inflammation significantly. She has a benign abdominal exam still and has had aseptic vital signs throughout. We have discussed putting her on Carafate and omeprazole with follow-up with Dr. Faustin as necessary. We've also given return precautions and she is okay with this plan. We've recommended a high fiber/residue, low-fat diet. If she is nauseated we've encouraged her to do a liquid diet. Departure Impression Primary Impression: Gastritis Qualified Codes: K29.50 - Unspecified chronic gastritis without bleeding Disposition: 01 HOME, SELF-CARE Condition: Improved Departure-Patient Inst. Decision time for Depature: 11:37 Referrals: BRITTANY VAZQUEZ DO (PCP/Family) Primary Care Physician DONOVAN FAUSTIN MD Patient Instructions: Gastritis (DC) Add. Discharge Instructions: If you become nauseated then you may take Zofran 1-2 tablets every 6 hours as needed. If you're nauseated then you should stick to a liquid diet. Otherwise you may advance to a high-fiber, low-fat, bland diet. Tylenol 1000 mg every 8 hours as needed for abdominal discomfort. Omeprazole 20 mg twice a day for the next 30 days. Carafate 1 tablet 30 minutes prior to meals and at bedtime, 4 times a day for the next 2 weeks. Plan to follow up with Dr. Fasutin in about 2-4 weeks. Follow-up sooner if your symptoms are worsening. Return to the ER if you develop fever especially above 102.5, intractable nausea or intractable abdominal pain. Scripts Omeprazole (Omeprazole) 20 Mg Capsule. 20 MG PO BID for 30 Days, #60 CAP 0 Refills Prov: JAKI GONZALEZ 08/31/19 Sucralfate (Carafate) 1 Gm Tablet 1 GM PO QIDACHS for 14 Days, #56 TAB 0 Refills Prov: JAKI GONZALEZ 08/31/19 JAKI GONZALEZ Aug 31, 2019 10:07
[2019-08-31] MEDS ORDERED: ANTACID SUSP 30 ML UDC (MYLANTA) PO ONE (10:15)
[2019-08-31] MEDS ORDERED: LIDOCAINE 2% VISCOUS 15 ML UDC PO ONE (10:15)
[2019-08-31] MEDS ORDERED: ONDANSETRON 4 MG/2 ML (SDV) Z0FRAN IVP ONE (10:15)
[2019-08-31 10:28] LABS: BASOPHILS # (AUTO) 0.1 10^3/uL (0.0-0.1); BASOPHILS % (AUTO) 1 % (0-10); EOSINOPHILS # (AUTO) 0.1 10^3/uL (0.0-0.3); EOSINOPHILS % (AUTO) 2 % (0-10); HEMATOCRIT 42 % (35-52); HEMOGLOBIN 13.9 G/DL (11.5-16.0); LYMPHOCYTES % (AUTO) 30 % (12-44); MEAN CORPUSCULAR HEMOGLOBIN 29 PG (25-34); MEAN CORPUSCULAR HGB CONC 34 G/DL (32-36); MEAN CORPUSCULAR VOLUME 85 FL (80-99); MONOCYTES # (AUTO) 0.7 X 10^3 (0.0-1.0); MONOCYTES % (AUTO) 10 % (0-12); NEUTROPHILS % (AUTO) 58 % (42-75); PLATELET COUNT 234 10^3/uL (130-400); RED CELL DISTRIBUTION WIDTH 13.1 % (10.0-14.5); WHITE BLOOD COUNT 6.8 10^3/uL (4.3-11.0)
[2019-08-31 10:34] LABS: BILIRUBIN,URINE NEGATIVE (NEGATIVE); CLARITY,URINE CLOUDY; COLOR,URINE YELLOW; GLUCOSE, URINE (UA) NEGATIVE (NEGATIVE); KETONES,URINE NEGATIVE (NEGATIVE); LEUKOCYTE ESTERASE ,URINE 1+ (NEGATIVE); NITRITE,URINE NEGATIVE (NEGATIVE); PROTEIN,URINE NEGATIVE (NEGATIVE)
--- NOTE | 2019-08-31 10:42 | NUR ---
Pt reports nausea is better at this time. Pt refusing GI cocktail with concern of nausea returning. Dr. Swanson notified.
[2019-08-31 10:49] LABS: ALANINE AMINOTRANSFERASE 14 U/L (0-55); ALBUMIN 4.3 GM/DL (3.2-4.5); ALKALINE PHOSPHATASE 53 U/L (40-136); BILIRUBIN,TOTAL 0.4 MG/DL (0.1-1.0); BUN/CREATININE RATIO 12; CALCIUM 9.1 MG/DL (8.5-10.1); CARBON DIOXIDE 16 MMOL/L (21-32); CHLORIDE 109 MMOL/L (98-107); CREATININE SERUM 0.75 MG/DL (0.60-1.30); GFR ESTIMATED > 60; GLUCOSE 96 MG/DL (70-105); LIPASE 20 U/L (8-78); POTASSIUM 4.2 MMOL/L (3.6-5.0); SODIUM 138 MMOL/L (135-145); TOTAL PROTEIN 7.5 GM/DL (6.4-8.2)
[2019-08-31 10:54] LABS: BACTERIA,URINE MODERATE /HPF; SQUAMOUS EPITHELIAL CELL,UR 25-50 /HPF; WBC,URINE 0-2 /HPF
--- NOTE | 2019-08-31 11:00 | NUR ---
Pt now agreeable to GI cocktail.
[2019-08-31] MEDS ORDERED: OMEP-280 PO (11:42)
[2019-08-31] MEDS ORDERED: SUCR1TAB36 PO (11:42)
[2019-08-31 11:48] VITALS: BP 133/90
== END 2019-08-31 11:51 | disposition home or self-care (01) ==
LOC: EDUNIT# 09:53 → ER 09:54
DX: K29.70 Gastritis, unspecified, without bleeding (principal); K21.0 Gastro-esophageal reflux disease with esophagitis; Z88.0 Allergy status to penicillin; Z88.2 Allergy status to sulfonamides; Z88.1 Allergy status to other antibiotic agents; Z79.51 Long term (current) use of inhaled steroids
CPT/HCPCS: 36415; 80053; 81000; 83690; 85025; 86141; 86308; 87088

== ENCOUNTER → 2020-02-04 | Outpatient (CLI) | payer BC ==
[~2020-02-04] VITALS: Ht 170 cm; Wt 81.0 kg
[~2020-02-04] MED LIST changes: -OMEP-280 PO; +OMEP20CA18 PO; +REGADENOSON 0.4 MG/5 ML SYR (LEXISCAN) IV ONE; +SUCR1TAB36 PO
[2020-02-04] MEDS: CATHETER FLUSH 10 ML SYR IV PRN ×2 (07:26→08:56)
[2020-02-04 08:54] VITALS: BP 145/85
--- NOTE | 2020-02-04 14:13 | STRESS TEST ---
DATE OF SERVICE: 02/04/2020 RESTING AND POST REGADENOSON TECHNETIUM-99M TETROFOSMIN SPECT CT IMAGING ORDERING PHYSICIAN: Dr. Dickinson. PRIMARY PHYSICIAN: Dr. Page. CLINICAL DIAGNOSES: Palpitations, shortness of breath. Baseline images were carried out after injection of 10.73 mCi of technetium-99m Tetrofosmin. This was followed by 0.4 mg regadenoson and 32.4 mCi of technetium-99m Tetrofosmin for stress imaging. The electrocardiogram showed sinus rhythm at baseline. It did not change significantly with regadenoson infusion. The patient tolerated the procedure well. Review of images at rest and following stress does not indicate any significant perfusion defects consistent with myocardial ischemia or infarction. Gated images show normal global left ventricular systolic function with normal regional wall motion. Left ventricular ejection fraction is calculated to be 78%. Left ventricular end diastolic volume is 44 mL. TID is absent (0.93). CONCLUSIONS: 1. No evidence of any significant myocardial ischemia or infarction on this study. 2. Normal regional wall motion. 3. Normal global left ventricular systolic function with a calculated ejection fraction of 78%. Job ID: [id number] DocumentID: [id number] Dictated Date: 02/04/2020 12:36:47 Petroleum Plant Operator Date: 02/04/2020 14:09:40 Dictated By: JOSE DICKINSON MD, MA, FACP, FACC,
== END ==
LOC: CARD 07:04
PROVIDERS: ATTEND Internal Medicine Cardiovascular Disease
DX: R00.2 Palpitations (principal); R06.02 Shortness of breath
CPT/HCPCS: 78452; 93017; A9502

== ENCOUNTER → 2020-02-05 | Outpatient (CLI) | payer BC ==
[~2020-02-05] MED LIST changes: -REGADENOSON 0.4 MG/5 ML SYR (LEXISCAN) IV ONE
== END ==
LOC: CARD 08:30
PROVIDERS: ATTEND Internal Medicine Cardiovascular Disease
DX: R00.2 Palpitations (principal); R06.02 Shortness of breath
CPT/HCPCS: 93225; 93226; 93306

== ENCOUNTER 2020-08-19 09:33 | Outpatient (CLI) | payer BC ==
[~2020-08-19 09:33] MED LIST changes: -FAMO-119 PO; -MTP25TSR PO
[2020-08-19] MEDS ORDERED: FAMO-119 PO (11:33)
[2020-08-19] MEDS ORDERED: MTP25TSR PO (11:37)
== END 2020-08-19 14:08 | disposition home or self-care (01) ==
LOC: PREOP 09:33
PROVIDERS: ATTEND Surgery
DX: Z01.818 Encounter for other preprocedural examination (principal)

== ENCOUNTER → 2020-08-19 | Outpatient (CLI) | payer BC ==
[~2020-08-19] MED LIST changes: -ASCO500C15 PO; +ASCO500C18 PO; +FAMO-119 PO; +MTP25TSR PO
== END ==
LOC: LABNPT 08:35
PROVIDERS: ATTEND Surgery
DX: Z01.812 Encounter for preprocedural laboratory examination (principal); K21.9 Gastro-esophageal reflux disease without esophagitis; Z20.822 Contact with and (suspected) exposure to COVID-19
CPT/HCPCS: 87635

== ENCOUNTER 2020-08-21 10:21 | Day surgery (SDC) | payer BC ==
[~2020-08-21] VITALS: Ht 170 cm; Wt 88.0 kg
[~2020-08-21 10:21] MED LIST changes: +FAMO-119 PO; +MTP25TSR PO
[2020-08-21] MEDS ORDERED: NS IV 500 ML 500 ML ONE (10:32)
[2020-08-21 10:43] VITALS: BP 149/94
[2020-08-21] MEDS ORDERED: LIDOCAINE JELLY 2% 6 ML SYRINGE MM PRN (10:45)
[2020-08-21] MEDS ORDERED: MIDAZOLAM 5 MG/5 ML (VERSED) VIAL IV ONE (10:45)
[2020-08-21] MEDS ORDERED: NS IV 500 ML 500 ML IV PRN (10:45)
[2020-08-21] MEDS ORDERED: HURRICAINE EXT TUBE (BENZOCAINE) XX PRN (10:45)
[2020-08-21] MEDS ORDERED: fentaNYL INJECTION 100 MCG/2 ML AMP IVP ONE (10:45)
--- NOTE | 2020-08-21 10:55 | Progress Note-Pre Operative ---
Pre-Operative Progress Note H&P Reviewed The H&P was reviewed, patient examined and no changes noted. Date Seen by Provider: Aug 21, 2020 Time Seen by Provider: 10:50 Date H&P Reviewed: Aug 21, 2020 Time H&P Reviewed: 10:50 Pre-Operative Diagnosis: DONOVAN SANTOS MD Aug 21, 2020 10:55
--- NOTE | 2020-08-21 10:55 | Conscious Sedation/ASA ---
Conscious Sedation Pre-Proced Time 10:50 ASA Score 2 For ASA 3 and 4: Consider anesthesia and medical clearance. Also, for patients with a history of failed moderate sedation consider anesthesia. Airway Lungs Heart ASA score ASA 1: a normal healthy patient ASA 2: a patient with a mild systemic disease (mid diabetes, controlled hypertension, obesity ASA 3: a patient with a severe systemic disease that limits activity (angina, COPD, prior Myocardial infarction) ASA 4: a patient with an incapacitating disease that is a constant threat to life (CHF, renal failure) ASA 5: a moribund patient not expected to survive 24 hrs. (ruptured aneurysm) ASA 6: a declared brain- patient whose organs are being harvested. For emergent operations, add the letter E after the classification Mallampati Classification Grade 2 Sedation Plan Analgesia, Amnesia, Plan communicated to team members, Discussed options with patient/fam, Discussed risks with patient/fam The patient is an appropriate candidate to undergo the planned procedure, sedation, and anesthesia. The patient immediately re-assessed prior to indication. DONOVAN BURRELL MD Aug 21, 2020 10:55
--- NOTE | 2020-08-21 10:56 | Discharge Inst-Surgical ---
D/C Lap Instructions-INDRA Follow Up Appt in 2 weeks Activity as tolerated High Fiber Diet 25g or more per day Avoid Alcohol, Caffeine, Spicy [place] and Acid foods. Drink 64 fluid oz or more of fluids per day. Symptoms to Report: Fever over 101 degree F, Nausea/Vomiting If any problems/questions: Contact your physician or go to Emergency Room DONOVAN BURRELL MD Aug 21, 2020 10:56
[2020-08-21] MEDS ORDERED: ONDANSETRON 4 MG/2 ML (SDV) Z0FRAN IVP PRN (11:00)
[2020-08-21] MEDS ORDERED: morphine INJ 10 MG/ML 1ML (SYR OR VIAL) IVP PRN ×2 (11:00)
[2020-08-21] MEDS ORDERED: ACETAMINOPHEN 325 MG TABLET PO PRN (11:00)
[2020-08-21] MEDS ORDERED: LIDOCAINE JELLY 2% 6 ML SYRINGE ONE (11:31)
[2020-08-21] MEDS ORDERED: MIDAZOLAM 5 MG/5 ML (VERSED) VIAL ONE ×2 (11:31→11:32)
[2020-08-21] MEDS ORDERED: HURRICAINE EXT TUBE (BENZOCAINE) ONE (11:32)
[2020-08-21] MEDS ORDERED: fentaNYL INJECTION 100 MCG/2 ML AMP ONE (11:32)
[2020-08-21] MEDS ORDERED: ONDANSETRON 4 MG/2 ML (SDV) Z0FRAN ONE (11:33)
[2020-08-21] MEDS ORDERED: proPOfol 200 MG/20 ML (DIPRIVAN) VIAL IV ONE (12:12)
[2020-08-21 12:30] VITALS: BP 129/70
[2020-08-21 12:35] VITALS: BP 154/76
--- NOTE | 2020-08-21 12:43 | Progress Note-Post Operative ---
Post-Operative Progess Note Surgeon (s)/Tank Calibrator (s) Surgeon DONOVAN BURRELL MD Tank Calibrator: none Pre-Operative Diagnosis GERD Post-Operative Diagnosis reflux esophagitis(stage 2), recurrent HH, mild gastritis. Procedure & Operative Findings Date of Procedure 08/21/20 Procedure Performed/Findings EGD with bx. Anesthesia Type mac Estimated Blood Loss Estimated blood loss (mL): minimal Specimens/Packing Specimens Removed ge jxn, antrum DONOVAN BURRELL MD Aug 21, 2020 12:43
[2020-08-21 13:00] VITALS: BP 150/88
[2020-08-21 13:10] VITALS: BP 150/88
--- NOTE | 2020-08-21 19:27 | OPERATIVE REPORT ---
DATE OF SERVICE: 08/21/2020 ATTENDING PRIMARY CARE PHYSICIAN: Betzaida Page DO PREOPERATIVE DIAGNOSES: Gastroesophageal reflux disease. POSTOPERATIVE DIAGNOSES: Reflux esophagitis stage II, recurrent hiatal hernia. Mild gastritis. PROCEDURE: EGD with biopsy. SURGEON: Donovan Burrell MD ANESTHESIA: Monitored anesthesia care. ESTIMATED BLOOD LOSS: Minimal. FINDINGS: Reflux esophagitis stage II, recurrent hiatal hernia. Mild gastritis. DISPOSITION: The patient tolerated the procedure well. INDICATIONS: The patient is a 55-year-old female with a longstanding history of gastroesophageal reflux disease. She tried medical management with the necessary lifestyle and diet accommodation; however, would continue to have symptoms. She was found to have a significant sized type 2 paraesophageal hernia and underwent a hiatal hernia repair as well as a Andriy fundoplication 02/21/2019. In the past 9 months, she reports that she has had worsening issues with reflux. She does not report any hematemesis, no coffee ground emesis. DESCRIPTION OF PROCEDURE: The patient was brought to the endoscopy suite, laid in the left lateral decubitus position. After adequate IV pain and sedative medications and monitored anesthesia care, the mouthpiece was applied. The endoscope was placed in the mouth, visualizing the pharynx and hypopharyngeal region. Vocal cords, epiglottis and vallecula identified and appeared to be normal. The endoscope was then gently intubated. The esophageal opening and esophagus insufflated. The endoscope was then advanced to the first, second and third portion of the esophagus to the level of the GE junction, a reflux esophagitis stage II identified. There were no ulcers. The GE junction was also intrathoracic consistent with a recurrent hiatal hernia. This was confirmed on retroflexed view. The endoscope was then advanced into the stomach and again the endoscope was retroflexed visualizing an intact wrap; however, recurrent hiatal hernia. There was a mild gastritis. No formal ulcerations, polyps, or any neoplasms. Pylorus and duodenum appeared normal with no distal obstructions. The endoscope was then slowly withdrawn while taking a second look and suctioning of residual air with no additional findings. The patient tolerated the procedure well. We will recommend continued medical management for now with small and more frequent meals, avoidance of eating at night as well as head elevation while lying supine. She also needs to avoid caffeinated beverages, spicy, greasy and acidic foods. If she continues to have symptoms or worsening symptoms over time, she may need a revisional surgery; however, we will refer her to a tertiary center for this. Job ID: [id number] DocumentID: [id number] Dictated Date: 08/21/2020 12:39:20 Live Source Operator Date: 08/21/2020 19:26:55 Dictated By: DONOVAN BURRELL MD
--- NOTE | 2020-08-24 08:58 | Anesthesia-General Post-Op ---
MAC Patient Condition Mental Status/LOC: Same as Preop Cardiovascular: Satisfactory Nausea/Vomiting: Absent Respiratory: Satisfactory Pain: Controlled Complications: Absent Post Op Complications Complications None Follow Up Care/Instructions Patient Instructions None needed. Anesthesiology Discharge Order Discharge Order Post-dated progress note: Patient was seen after the procedure on 08-20 at approximately 1245 and she was doing well, no complaints, stable vital signs, no apparent adverse anesthesia problems. MINI CALLAHAN DO Aug 24, 2020 08:58
== END 2020-08-21 13:10 | disposition home or self-care (01) ==
LOC: ENDO 10:21
PROVIDERS: ATTEND Surgery
DX: K21.00 Gastro-esophageal reflux disease with esophagitis, without bleeding (principal); K29.50 Unspecified chronic gastritis without bleeding; K44.9 Diaphragmatic hernia without obstruction or gangrene; Z88.0 Allergy status to penicillin; Z88.2 Allergy status to sulfonamides; Z88.1 Allergy status to other antibiotic agents
CPT/HCPCS: 88305

== ENCOUNTER → 2020-12-09 | Outpatient (CLI) | payer BC | LOC: LABNPT 06:12 | PROVIDERS: ATTEND Podiatrist | DX: Z01.812 Encounter for preprocedural laboratory examination (principal); Z20.822 Contact with and (suspected) exposure to COVID-19 | CPT/HCPCS: 87635 ==

== ENCOUNTER → 2022-11-16 | Outpatient (CLI) | payer BC ==
--- NOTE | 2022-11-16 16:19 | Diagnostic Imaging Report ---
PROCEDURE: Pelvic comp/transvaginal sonogram. TECHNIQUE: Complete transabdominal and transvaginal pelvic ultrasound was performed. In addition, limited pelvic Doppler was performed. INDICATION: Dysfunctional uterine bleeding and menorrhagia. FINDINGS: The uterus is anteverted measuring 8.4 x 4.2 x 6.0 cm. Endometrium is 10 mm in thickness. There is an area of hypoechoic heterogeneity in the region of the cervix measuring 2.3 x 0.6 x 2.0 cm. No internal vascularity is present. No other myometrial masses are seen. The ovaries could not be visualized due to overlying bowel gas. No adnexal mass or free fluid is seen. IMPRESSION: 1. Nonvisualized ovaries. 2. There is an area of heterogeneous hypoechogenicity in the region of the cervix, which is indeterminate. Direct visualization if not recently performed would be recommended. No other abnormalities are seen. Dictated by: Dictated on workstation # [id number]
== END ==
LOC: RAD 15:15
PROVIDERS: ATTEND Surgery
DX: N93.8 Other specified abnormal uterine and vaginal bleeding (principal); N92.0 Excessive and frequent menstruation with regular cycle
CPT/HCPCS: 76830; 76856

== ENCOUNTER 2023-04-26 09:35 | Outpatient (RCR) | payer BC | END 2023-04-29 | disposition home or self-care (01) | PROVIDERS: ATTEND Physical Therapist | DX: M77.11 Lateral epicondylitis, right elbow (principal); M25.511 Pain in right shoulder ==

== ENCOUNTER 2023-05-26 08:55 | Outpatient (RCR) | payer BC | END 2023-05-30 | disposition home or self-care (01) | PROVIDERS: ATTEND Physical Therapist | DX: M77.11 Lateral epicondylitis, right elbow (principal); M25.511 Pain in right shoulder ==

== ENCOUNTER 2023-06-09 08:15 | Outpatient (RCR) | payer BC | END 2023-06-29 | disposition home or self-care (01) | PROVIDERS: ATTEND Physical Therapist | DX: M77.11 Lateral epicondylitis, right elbow (principal); M25.511 Pain in right shoulder ==

== ENCOUNTER 2023-07-03 08:00 | Outpatient (RCR) | payer BC | END 2023-07-03 12:15 | disposition home or self-care (01) | PROVIDERS: ATTEND Physical Therapist | DX: M77.11 Lateral epicondylitis, right elbow (principal); M25.511 Pain in right shoulder ==